=== PATIENT | female | born 1935 | race Caucasian/White ===

== ENCOUNTER 2018-11-12 19:23 | Inpatient (IN) | payer MEDICARE, OTHER ==
--- NOTE | 2018-11-12 21:46 | EDM.PDOC ---
ED HPI GENERAL MEDICAL PROBLEM - General Chief Complaint: General Stated Complaint: ILLNESS Time Seen by Provider: 11/12/18 21:25 Source of Information: Reports: Patient History Limitations: Reports: Altered Mental Status, Physical Impairment - History of Present Illness INITIAL COMMENTS - FREE TEXT/NARRATIVE: 83-year-old female with severe weakness, somnolence, lack of oral intake and has become too disinterested in eating for the family to take care of her. She' s been losing weight for a year, has dementia but has had a marked decrease in mental awareness and activity over the past 24 hours. The family brought her in today because they think she needs nourishment and is concerned there may be some other reason for the weakness. She did walk-in with assistance, she was brought in by private car. She really has no specific complaints. Onset: Gradual, Unknown/Unsure Associated Symptoms: Reports: Confusion, Loss of Appetite, Malaise, Weakness. Denies: Chest Pain, Cough, Fever/Chills, Headaches, Shortness of Breath - Related Data Allergies Allergy/AdvReac Type Severity Reaction Status Date / Time Penicillins Allergy Rash Verified 11/12/18 21:20 Home Meds: Home Meds Donepezil HCl 10 mg PO BEDTIME 11/12/18 [History] Memantine HCl 5 mg PO BID 11/12/18 [History] Past Medical History HEENT History: Reports: Cataract, Impaired Vision [employer] History: Reports: Musculoskeletal History: Reports: Arthritis Neurological History: Reports: Alzheimers Disease Psychiatric History: Reports: Dementia Social & Family History - Tobacco Use Smoking Status *Q: Never Smoker - Caffeine Use Caffeine Use: Reports: None - Recreational Drug Use Recreational Drug Use: No ED ROS GENERAL - Review of Systems Review Of Systems: See Below (Chronic and stable) Constitutional: Reports: Malaise, Weakness, Decreased Appetite, Weight Loss. Denies: Fever, Chills HEENT: Denies: Sinus Problem, Vertigo Respiratory: Denies: Shortness of Breath, Cough Cardiovascular: Denies: Chest Pain Endocrine: Reports: Fatigue (Has been sleeping a lot over the past 24 hours) GI/Abdominal: Reports: Abdominal Pain (Intermittent vague abdominal pain complaints). Denies: Diarrhea, Nausea, Vomiting : Reports: No Symptoms Neurological: Reports: Confusion (Has dementia). Denies: Headache Psychiatric: Denies: Anxiety, Depression ED EXAM, GENERAL - Physical Exam Exam: See Below Exam Limited By: No Limitations General Appearance: Lethargic, Other (Patient is arousable and will answer questions when spoken to but is acting very tired) Eye Exam: Bilateral Eye: EOMI Head: Atraumatic Respiratory/Chest: No Respiratory Distress, Lungs Clear Cardiovascular: Regular Rate, Rhythm GI/Abdominal: Soft, Tender (Does react with some vague tenderness to palpation but no focal tenderness or guarding) Extremities: Other (Cachectic extremities, trace of ankle edema) Neurological: Inattentive, Slow to Respond Psychiatric: Flat Affect Skin Exam: Warm, Dry Course - Vital Signs Last Recorded V/S: Last Vital Signs Temp 97.3 F 11/14/18 13:14 Pulse 65 11/14/18 13:14 Resp 16 11/14/18 13:14 BP 117/53 L 11/14/18 13:14 Pulse Ox 98 11/14/18 13:14 - Orders/Labs/Meds Orders: Active Orders 24 hr Category Date Time Status Convert IV to Saline Lock [OM.PC] Routine Oth 11/13/18 16:57 Ordered Labs: Laboratory Tests 11/12/18 11/12/18 11/12/18 Range/Units 21:41 21:52 21:52 WBC 3.7 L (4.5-11.0) K/uL RBC 3.68 (3.30-5.50) M/uL Hgb 11.6 L (12.0-15.0) g/dL Hct 35.4 L (36.0-48.0) % MCV 96 (80-98) fL MCH 32 H (27-31) pg MCHC 33 (32-36) % Plt Count 148 L (150-400) K/uL Neut % (Auto) 54 (36-66) % Lymph % (Auto) 31 (24-44) % [place] % (Auto) 12 H (2-6) % Eos % (Auto) 2 (2-4) % Baso % (Auto) 1 (0-1) % Sodium 145 (140-148) mmol/L Potassium 3.7 (3.6-5.2) mmol/L Chloride 106 (100-108) mmol/L Carbon Dioxide 34 H (21-32) mmol/L Anion Gap 8.7 (5.0-14.0) mmol/L BUN 29 H D (7-18) mg/dL Creatinine 0.9 (0.6-1.0) mg/dL Est Cr Clr Drug Dosing 33.91 mL/min Estimated GFR (MDRD) 60 (>60) Glucose 79 (74-106) mg/dL Calcium 8.9 (8.5-10.1) mg/dL Total Bilirubin 0.6 (0.2-1.0) mg/dL AST 27 (15-37) U/L ALT 39 (12-78) U/L Alkaline Phosphatase 47 (46-116) U/L Total Protein 6.7 (6.4-8.2) g/dL Albumin 3.3 L (3.4-5.0) g/dL Globulin 3.4 (2.3-3.5) g/dL Albumin/Globulin Ratio 1.0 L (1.2-2.2) Urine Color Yellow Urine Appearance Turbid Urine pH 5.0 (4.5-8.0) Ur Specific [place] 1.020 (1.008-1.030) Urine Protein 30 H (NEGATIVE) mg/dL Urine Glucose (UA) Normal (NEGATIVE) mg/dL Urine Ketones Negative (NEGATIVE) mg/dL Urine Occult Blood Large (NEGATIVE) Urine Nitrite Positive H (NEGATIVE) Urine Bilirubin Negative (NEGATIVE) Urine Urobilinogen Normal (NORMAL) mg/dL Ur Leukocyte Esterase Small (NEGATIVE) Urine RBC 10-20 H (0-5) Urine WBC 10-20 H (0-5) Ur Epithelial Cells Rare Amorphous Sediment Not seen Urine Bacteria Many Urine Mucus Not seen 11/13/18 11/13/18 Range/Units 04:45 04:45 WBC 3.6 L (4.5-11.0) K/uL RBC 3.47 (3.30-5.50) M/uL Hgb 11.0 L (12.0-15.0) g/dL Hct 33.5 L (36.0-48.0) % MCV 97 (80-98) fL MCH 32 H (27-31) pg MCHC 33 (32-36) % Plt Count 137 L (150-400) K/uL Neut % (Auto) 53 (36-66) % Lymph % (Auto) 32 (24-44) % [place] % (Auto) 11 H (2-6) % Eos % (Auto) 3 (2-4) % Baso % (Auto) 1 (0-1) % Sodium 144 (140-148) mmol/L Potassium 3.7 (3.6-5.2) mmol/L Chloride 108 (100-108) mmol/L Carbon Dioxide 30 (21-32) mmol/L Anion Gap 5.9 (5.0-14.0) mmol/L BUN 22 H (7-18) mg/dL Creatinine 0.7 (0.6-1.0) mg/dL Est Cr Clr Drug Dosing 42.97 mL/min Estimated GFR (MDRD) > 60 (>60) Glucose 85 (74-106) mg/dL Calcium 8.3 L (8.5-10.1) mg/dL Total Bilirubin 0.5 (0.2-1.0) mg/dL AST 25 (15-37) U/L ALT 35 (12-78) U/L Alkaline Phosphatase 42 L (46-116) U/L Total Protein 6.0 L (6.4-8.2) g/dL Albumin 2.9 L (3.4-5.0) g/dL Globulin 3.1 (2.3-3.5) g/dL Albumin/Globulin Ratio 0.9 L (1.2-2.2) Urine Color Urine Appearance Urine pH (4.5-8.0) Ur Specific [place] (1.008-1.030) Urine Protein (NEGATIVE) mg/dL Urine Glucose (UA) (NEGATIVE) mg/dL Urine Ketones (NEGATIVE) mg/dL Urine Occult Blood (NEGATIVE) Urine Nitrite (NEGATIVE) Urine Bilirubin (NEGATIVE) Urine Urobilinogen (NORMAL) mg/dL Ur Leukocyte Esterase (NEGATIVE) Urine RBC (0-5) Urine WBC (0-5) Ur Epithelial Cells Amorphous Sediment Urine Bacteria Urine Mucus Meds: Medications Discontinued Medications Generic Name Dose Route Start Last Admin Trade Name Freq PRN Reason Stop Dose Admin Acetaminophen 650 mg 11/12/18 23:17 Tylenol PO Q4H PRN Pain (Mild 1-3)/fever Donepezil HCl 10 mg 11/13/18 21:00 11/13/18 21:58 Aricept PO 10 mg BEDTIME JULISSA Administration Donepezil HCl 10 mg 11/13/18 01:00 11/13/18 02:08 Aricept PO 11/13/18 01:01 Not Given ONETIME ONE Haloperidol Lactate 1 mg 11/13/18 19:59 Haldol IVPUSH Q2H PRN Agitation Heparin Sodium (Porcine) 5,000 units 11/13/18 00:00 11/14/18 08:53 Heparin Sodium SUBCUT 5,000 units Q8H JULISSA Administration Sodium Chloride 500 mls @ 1,000 mls/hr 11/12/18 22:15 11/12/18 22:14 Normal Saline IV 1,000 mls/hr ASDIRECTED JULISSA Administration Sodium Chloride 500 mls @ 500 mls/hr 11/12/18 23:30 11/12/18 23:54 Normal Saline IV 11/13/18 00:29 500 mls/hr ASDIRECTED JULISSA Administration Sodium Chloride 1,000 mls @ 100 mls/hr 11/12/18 23:45 11/13/18 11:25 Normal Saline IV 100 mls/hr ASDIRECTED JULISSA Administration Ceftriaxone Sodium 1 gm/ 50 mls @ 100 mls/hr 11/12/18 23:45 11/13/18 00:41 Sodium Chloride IV 11/13/18 00:14 100 mls/hr ONETIME ONE Administration Ceftriaxone Sodium 1 gm/ 50 mls @ 100 mls/hr 11/12/18 23:45 Sodium Chloride IV 11/13/18 00:14 ONETIME ONE Ceftriaxone Sodium 1 gm/ 50 mls @ 100 mls/hr 11/13/18 21:00 11/13/18 21:58 Sodium Chloride IV 100 mls/hr Q24H JULISSA Administration Influenza Virus Vaccine 1 each 11/13/18 12:00 Pharmacy To Dose - Influenza Vaccine IM 11/13/18 12:01 ONETIME ONE Influenza Virus Vaccine 180 mcg 11/13/18 10:00 11/13/18 14:54 Fluzone High-Dose Syringe IM 11/13/18 10:01 180 mcg .ONCE ONE Administration Melatonin 6 mg 11/13/18 21:00 11/13/18 22:07 Melatonin PO 6 mg BEDTIME JULISSA Administration Memantine 10 mg 11/13/18 01:00 11/13/18 03:12 Namenda PO Not Given BID JULISSA Memantine 5 Mg Tab 2 each 11/13/18 09:00 Own Med PO BID JULISSA Memantine 5mg (Ptom) 0 each 11/13/18 09:00 11/14/18 08:53 PO 1 each BID JULISSA Administration Senna/Docusate Sodium 1 tab 11/12/18 23:17 Senna Plus PO BID PRN Constipation - Re-Assessments/Exams Free Text/Narrative Re-Assessment/Exam: 11/12/18 21:45 A quick catheter UA was obtained, along with a CBC and CMP. 11/12/18 22:25 Quick catheter UA obtained only 5-10 mL of urine, patient is likely volume contracted. Urine was nitrite positive with many bacteria and WBCs. Normal saline was started with a 500 mL bolus. 11/12/18 22:27 CBC and CMP were actually relatively reassuring, BUN was mildly elevated, white count 3700. I talked to Dr. Saenz for admission for UTI, mental status change, and dehydration. Departure - Departure Time of Disposition: 23:53 Disposition: Refer to Observation Condition: Poor Clinical Impression: Dehydration Altered mental state Qualifiers: Altered mental status type: somnolence Qualified Code(s): R40.0 - Somnolence Dementia Qualifiers: Dementia type: Alzheimer's disease Alzheimer's disease onset: unspecified onset Dementia behavioral disturbance: without behavioral disturbance Qualified Code(s): G30.9 - Alzheimer's disease, unspecified; F02.80 - Dementia in other diseases classified elsewhere without behavioral disturbance UTI (urinary tract infection) Qualifiers: Urinary tract infection type: acute cystitis Hematuria presence: without hematuria Qualified Code(s): N30.00 - Acute cystitis without hematuria - Discharge Information
[2018-11-12] MEDS ORDERED: Sodium Chloride 0.9% 500 ML IV SCH ×2 (22:15→23:30)
[2018-11-12] MEDS ORDERED: Acetaminophen 325 MG Tab PO PRN (23:17)
--- NOTE | 2018-11-12 23:17 | PCM.HP ---
H&P History of Present Illness - General Date of Service: 11/12/18 Admit Problem/Dx: 83-year-old female with past medical history of dementia on Namenda medication came to the ED with a complaining of altered mental status, associated with a loss of appetite since last 2 days. Patient accompanied with and son. In the ED patient lab results showed urinary tract infection with nitrites positive. Patient is arousable and responding to the questions. Patient received 500 mL of bolus in the ED patient denies any chest pain, exertional chest pain, breathing difficulty, headaches, dizziness, lightheadedness, disturbance in bowel habits. Patient complaining of suprapubic abdominal pain 2 -3/10 intensity, dull type pain since last 1 day. Patient denies any vomitings. Patient creatinine is at baseline. Patient is a full code. Patient admitted into the observation status. Other review of systems are not significant. Source of Information: Patient, Family History Limitations: Reports: Altered Mental Status - Related Data Allergies/Adverse Reactions: Allergies Allergy/AdvReac Type Severity Reaction Status Date / Time Penicillins Allergy Rash Verified 11/12/18 21:20 Home Medications: Home Meds Donepezil HCl 10 mg PO BEDTIME 11/12/18 [History] Memantine HCl 5 mg PO BID 11/12/18 [History] Past Medical History HEENT History: Reports: Cataract, Impaired Vision [employer] History: Reports: Musculoskeletal History: Reports: Arthritis Neurological History: Reports: Alzheimers Disease Psychiatric History: Reports: Dementia Social & Family History - Family History Family Medical History: Noncontributory - Tobacco Use Smoking Status *Q: Never Smoker - Caffeine Use Caffeine Use: Reports: None - Recreational Drug Use Recreational Drug Use: No H&P Review of Systems - Review of Systems: Review Of Systems: See Below General: Reports: Malaise, Weakness, Fatigue. Denies: Fever, Chills, Night Sweats, Diaphoresis Pulmonary: Denies: Shortness of Breath, Wheezing, Pleuritic Chest Pain, Cough, Sputum Cardiovascular: Denies: Chest Pain, Palpitations, Dyspnea on Exertion, Orthopnea Gastrointestinal: Reports: Abdominal Pain, Anorexia, Decreased Appetite. Denies : Black Stool, Bloody Stool, Constipation, Diarrhea, Difficulty Swallowing, Distension, Flatus Genitourinary: Reports: Dysuria, Frequency. Denies: Burning, Pain, Urgency, Incontinence Musculoskeletal: Denies: Neck Pain, Shoulder Pain Skin: Denies: Cyanosis, Jaundice Psychiatric: Reports: Confusion. Denies: Depression, Mood Lability, Anxiety, Agitation Neurological: Reports: Confusion. Denies: Dizziness, Headache, Numbness, Paresthesia Hematologic/Lymphatic: Denies: Anemia, Easy Bleeding Exam - Exam Exam: See Below - Vital Signs Vital Signs: Last Vital Signs Temp 35.5 C 11/12/18 21:24 Pulse 53 L 11/12/18 23:02 Resp 17 11/12/18 23:02 BP 126/64 11/12/18 23:02 Pulse Ox 100 11/12/18 23:02 Weight: 45.359 kg - Exam Quality Assessment: No: Supplemental Oxygen General: Mild Distress HEENT: PERRLA Neck: Supple, Trachea Midline Lungs: Clear to Auscultation, Normal Respiratory Effort Cardiovascular: Regular Rate, Regular Rhythm GI/Abdominal Exam: Normal Bowel Sounds, Soft, Tender. No: Distended, Guarding, Rigid, Rebound, Hepatomegaly, Splenomegaly Extremities: Normal Inspection, Normal Range of Motion Skin: Warm, Dry, Intact Neurological: Cranial Nerves Intact Neuro Extensive - Mental Status: Disorientation to Person, Disorientation to Place, Disorientation to Time Neuro Extensive - Motor, Sensory, Reflexes: CN II-XII Intact - Patient Data Lab Results Last 24 hrs: Laboratory Results - last 24 hr 11/12/18 11/12/18 11/12/18 Range/Units 21:41 21:52 21:52 WBC 3.7 L (4.5-11.0) K/uL RBC 3.68 (3.30-5.50) M/uL Hgb 11.6 L (12.0-15.0) g/dL Hct 35.4 L (36.0-48.0) % MCV 96 (80-98) fL MCH 32 H (27-31) pg MCHC 33 (32-36) % Plt Count 148 L (150-400) K/uL Neut % (Auto) 54 (36-66) % Lymph % (Auto) 31 (24-44) % [place] % (Auto) 12 H (2-6) % Eos % (Auto) 2 (2-4) % Baso % (Auto) 1 (0-1) % Sodium 145 (140-148) mmol/L Potassium 3.7 (3.6-5.2) mmol/L Chloride 106 (100-108) mmol/L Carbon Dioxide 34 H (21-32) mmol/L Anion Gap 8.7 (5.0-14.0) mmol/L BUN 29 H D (7-18) mg/dL Creatinine 0.9 (0.6-1.0) mg/dL Est Cr Clr Drug Dosing 33.91 mL/min Estimated GFR (MDRD) 60 (>60) Glucose 79 (74-106) mg/dL Calcium 8.9 (8.5-10.1) mg/dL Total Bilirubin 0.6 (0.2-1.0) mg/dL AST 27 (15-37) U/L ALT 39 (12-78) U/L Alkaline Phosphatase 47 (46-116) U/L Total Protein 6.7 (6.4-8.2) g/dL Albumin 3.3 L (3.4-5.0) g/dL Globulin 3.4 (2.3-3.5) g/dL Albumin/Globulin Ratio 1.0 L (1.2-2.2) Urine Color Yellow Urine Appearance Turbid Urine pH 5.0 (4.5-8.0) Ur Specific [place] 1.020 (1.008-1.030) Urine Protein 30 H (NEGATIVE) mg/dL Urine Glucose (UA) Normal (NEGATIVE) mg/dL Urine Ketones Negative (NEGATIVE) mg/dL Urine Occult Blood Large (NEGATIVE) Urine Nitrite Positive H (NEGATIVE) Urine Bilirubin Negative (NEGATIVE) Urine Urobilinogen Normal (NORMAL) mg/dL Ur Leukocyte Esterase Small (NEGATIVE) Urine RBC 10-20 H (0-5) Urine WBC 10-20 H (0-5) Ur Epithelial Cells Rare Amorphous Sediment Not seen Urine Bacteria Many Urine Mucus Not seen Result Diagrams: 11/13/18 04:45 11/13/18 04:45 - Problem List (1) Dementia SNOMED Code(s): 63186375 ICD Code: F03.90 - UNSPECIFIED DEMENTIA WITHOUT BEHAVIORAL DISTURBANCE Status: Acute Current Visit: Yes (2) UTI (urinary tract infection) SNOMED Code(s): 38659876 ICD Code: N39.0 - URINARY TRACT INFECTION, SITE NOT SPECIFIED Status: Acute Current Visit: Yes (3) Altered mental state SNOMED Code(s): 726922638 ICD Code: R41.82 - ALTERED MENTAL STATUS, UNSPECIFIED Status: Acute Current Visit: Yes (4) Loss of appetite SNOMED Code(s): 62742445 ICD Code: R63.0 - ANOREXIA Status: Acute Current Visit: Yes (5) Weight loss SNOMED Code(s): 00301752, 006985170 ICD Code: R63.4 - ABNORMAL WEIGHT LOSS Status: Acute Current Visit: Yes (6) Backache SNOMED Code(s): 962917787 ICD Code: M54.9 - DORSALGIA, UNSPECIFIED Status: Acute Priority: Medium Current Visit: No (7) Compression fracture SNOMED Code(s): 832612291 ICD Code: T14.8 - OTHER INJURY OF UNSPECIFIED BODY REGION * DO NOT USE * Status: Acute Current Visit: No (8) DJD (degenerative joint disease) SNOMED Code(s): 547139205 ICD Code: M19.90 - UNSPECIFIED OSTEOARTHRITIS, UNSPECIFIED SITE Status: Chronic Current Visit: No Problem List Initiated/Reviewed/Updated: Yes Orders Last 24hrs: Active Orders 24 hr Category Date Time Status CULTURE URINE [RM] Stat Lab 11/12/18 22:25 Received Sodium Chloride 0.9% [Normal Saline] 500 ml Med 11/12/18 22:15 Active IV ASDIRECTED Medication Orders Sodium Chloride (Normal Saline) 500 mls @ 1,000 mls/hr IV ASDIRECTED JULISSA Last Admin: 11/12/18 22:14 Dose: 1,000 mls/hr Assessment/Plan Comment:: 83-year-old female with past medical history of dementia and came to the clinic came to the ED with a complaining of altered mental status and diagnosed with a urinary tract infection. Patient the urine showed nitrates are positive We will treat with Rocephin 1 g once daily We will follow urinary culture results and change antibiotics accordingly Patient received 500 mL of bolus in the ED Will place 500 mL of second bolus and after maintenance IV fluids 100 mL/h Patient is a full code We will repeat CBC, CMP tomorrow Consulted PT and OT DVT prophylaxis heparin 5000 q. 8 hourly Diet regular diet CODE STATUS full code Esquivel catheter not indicated Status observation status
[2018-11-12] MEDS ORDERED: cefTRIAXone 1 GM in Sodium Chloride 0.9% 50 ML IV SCH (23:30)
[2018-11-12] MEDS ORDERED: cefTRIAXone 1 GM in Sodium Chloride 0.9% 50 ML IV ONE ×4 (23:45)
[2018-11-13] MEDS: Heparin Sodium 5,000 Units/ML Vial SUBCUT SCH ×3 (00:49→18:20)
[2018-11-13] MEDS: Sodium Chloride 0.9% 1,000 ML IV SCH ×2 (01:00→11:25)
[2018-11-13] MEDS ORDERED: MEMANTINE 5 MG PO SCH ×3 (01:00→09:00)
[2018-11-13] MEDS: MEMANTINE 5 MG PO SCH ×2 (08:52→21:57)
--- NOTE | 2018-11-13 17:04 | PCM.PN ---
- General Info Date of Service: 11/13/18 Subjective Update: Ms. Palma is an 83-year-old woman who was admitted last night through the emergency department with increased weakness and lethargy secondary to urinary tract infection. Urinalysis obtained in the emergency department was felt to be consistent with urinary tract infection and the urine culture has been obtained , results of which are pending at this time. She is been given IV fluids for hydration and IV antibiotic therapy with ceftriaxone. Because of her significant dementia she is unable to provide a meaningful history concerning recent symptoms or review of systems. - Patient Data Vitals - Most Recent: Last Vital Signs Temp 96.5 F 11/13/18 14:35 Pulse 62 11/13/18 14:35 Resp 16 11/13/18 14:35 BP 122/59 L 11/13/18 14:35 Pulse Ox 98 11/13/18 14:35 Weight - Most Recent: 100 lb I&O - Last 24 Hours: Intake & Output 11/13/18 11/13/18 11/13/18 06:59 14:59 22:59 Intake Total 850 580 Output Total 100 Balance 750 580 Lab Results Last 24 Hours: Laboratory Results - last 24 hr 11/12/18 11/12/18 11/12/18 Range/Units 21:41 21:52 21:52 WBC 3.7 L (4.5-11.0) K/uL RBC 3.68 (3.30-5.50) M/uL Hgb 11.6 L (12.0-15.0) g/dL Hct 35.4 L (36.0-48.0) % MCV 96 (80-98) fL MCH 32 H (27-31) pg MCHC 33 (32-36) % Plt Count 148 L (150-400) K/uL Neut % (Auto) 54 (36-66) % Lymph % (Auto) 31 (24-44) % [place] % (Auto) 12 H (2-6) % Eos % (Auto) 2 (2-4) % Baso % (Auto) 1 (0-1) % Sodium 145 (140-148) mmol/L Potassium 3.7 (3.6-5.2) mmol/L Chloride 106 (100-108) mmol/L Carbon Dioxide 34 H (21-32) mmol/L Anion Gap 8.7 (5.0-14.0) mmol/L BUN 29 H D (7-18) mg/dL Creatinine 0.9 (0.6-1.0) mg/dL Est Cr Clr Drug Dosing 33.91 mL/min Estimated GFR (MDRD) 60 (>60) Glucose 79 (74-106) mg/dL Calcium 8.9 (8.5-10.1) mg/dL Total Bilirubin 0.6 (0.2-1.0) mg/dL AST 27 (15-37) U/L ALT 39 (12-78) U/L Alkaline Phosphatase 47 (46-116) U/L Total Protein 6.7 (6.4-8.2) g/dL Albumin 3.3 L (3.4-5.0) g/dL Globulin 3.4 (2.3-3.5) g/dL Albumin/Globulin Ratio 1.0 L (1.2-2.2) Urine Color Yellow Urine Appearance Turbid Urine pH 5.0 (4.5-8.0) Ur Specific [place] 1.020 (1.008-1.030) Urine Protein 30 H (NEGATIVE) mg/dL Urine Glucose (UA) Normal (NEGATIVE) mg/dL Urine Ketones Negative (NEGATIVE) mg/dL Urine Occult Blood Large (NEGATIVE) Urine Nitrite Positive H (NEGATIVE) Urine Bilirubin Negative (NEGATIVE) Urine Urobilinogen Normal (NORMAL) mg/dL Ur Leukocyte Esterase Small (NEGATIVE) Urine RBC 10-20 H (0-5) Urine WBC 10-20 H (0-5) Ur Epithelial Cells Rare Amorphous Sediment Not seen Urine Bacteria Many Urine Mucus Not seen 11/13/18 11/13/18 Range/Units 04:45 04:45 WBC 3.6 L (4.5-11.0) K/uL RBC 3.47 (3.30-5.50) M/uL Hgb 11.0 L (12.0-15.0) g/dL Hct 33.5 L (36.0-48.0) % MCV 97 (80-98) fL MCH 32 H (27-31) pg MCHC 33 (32-36) % Plt Count 137 L (150-400) K/uL Neut % (Auto) 53 (36-66) % Lymph % (Auto) 32 (24-44) % [place] % (Auto) 11 H (2-6) % Eos % (Auto) 3 (2-4) % Baso % (Auto) 1 (0-1) % Sodium 144 (140-148) mmol/L Potassium 3.7 (3.6-5.2) mmol/L Chloride 108 (100-108) mmol/L Carbon Dioxide 30 (21-32) mmol/L Anion Gap 5.9 (5.0-14.0) mmol/L BUN 22 H (7-18) mg/dL Creatinine 0.7 (0.6-1.0) mg/dL Est Cr Clr Drug Dosing 42.97 mL/min Estimated GFR (MDRD) > 60 (>60) Glucose 85 (74-106) mg/dL Calcium 8.3 L (8.5-10.1) mg/dL Total Bilirubin 0.5 (0.2-1.0) mg/dL AST 25 (15-37) U/L ALT 35 (12-78) U/L Alkaline Phosphatase 42 L (46-116) U/L Total Protein 6.0 L (6.4-8.2) g/dL Albumin 2.9 L (3.4-5.0) g/dL Globulin 3.1 (2.3-3.5) g/dL Albumin/Globulin Ratio 0.9 L (1.2-2.2) Urine Color Urine Appearance Urine pH (4.5-8.0) Ur Specific [place] (1.008-1.030) Urine Protein (NEGATIVE) mg/dL Urine Glucose (UA) (NEGATIVE) mg/dL Urine Ketones (NEGATIVE) mg/dL Urine Occult Blood (NEGATIVE) Urine Nitrite (NEGATIVE) Urine Bilirubin (NEGATIVE) Urine Urobilinogen (NORMAL) mg/dL Ur Leukocyte Esterase (NEGATIVE) Urine RBC (0-5) Urine WBC (0-5) Ur Epithelial Cells Amorphous Sediment Urine Bacteria Urine Mucus Med Orders - Current: Current Medications Acetaminophen (Tylenol) 650 mg PO Q4H PRN PRN Reason: Pain (Mild 1-3)/fever Donepezil HCl (Aricept) 10 mg PO BEDTIME [facility] Heparin Sodium (Porcine) (Heparin Sodium) 5,000 units SUBCUT Q8H [facility] Last Admin: 11/13/18 08:50 Dose: 5,000 units Ceftriaxone Sodium 1 gm/ (Sodium Chloride) 50 mls @ 100 mls/hr IV Q24H [facility] Memantine 5mg (Ptom) 0 each PO BID [facility] Last Admin: 11/13/18 08:52 Dose: 1 each Senna/Docusate Sodium (Senna Plus) 1 tab PO BID PRN PRN Reason: Constipation Discontinued Medications Donepezil HCl (Aricept) 10 mg PO ONETIME ONE Stop: 11/13/18 01:01 Last Admin: 11/13/18 02:08 Dose: Not Given Sodium Chloride (Normal Saline) 500 mls @ 1,000 mls/hr IV ASDIRECTED [facility] Last Admin: 11/12/18 22:14 Dose: 1,000 mls/hr Sodium Chloride (Normal Saline) 500 mls @ 500 mls/hr IV ASDIRECTED [facility] Stop: 11/13/18 00:29 Last Admin: 11/12/18 23:54 Dose: 500 mls/hr Sodium Chloride (Normal Saline) 1,000 mls @ 100 mls/hr IV ASDIRECTED [facility] Last Admin: 11/13/18 11:25 Dose: 100 mls/hr Ceftriaxone Sodium 1 gm/ (Sodium Chloride) 50 mls @ 100 mls/hr IV ONETIME ONE Stop: 11/13/18 00:14 Last Admin: 11/13/18 00:41 Dose: 100 mls/hr Ceftriaxone Sodium 1 gm/ (Sodium Chloride) 50 mls @ 100 mls/hr IV ONETIME ONE Stop: 11/13/18 00:14 Influenza Virus Vaccine (Pharmacy To Dose - Influenza Vaccine) 1 each IM ONETIME ONE Stop: 11/13/18 12:01 Influenza Virus Vaccine (Fluzone High-Dose Syringe) 180 mcg IM .ONCE ONE Stop: 11/13/18 10:01 Last Admin: 11/13/18 14:54 Dose: 180 mcg Memantine (Namenda) 10 mg PO BID [facility] Last Admin: 11/13/18 03:12 Dose: Not Given Memantine 5 Mg Tab (Own Med) 2 each PO BID [facility] - Exam Quality Assessment: DVT Prophylaxis General: Alert, Cooperative, No Acute Distress Lungs: Clear to Auscultation, Normal Respiratory Effort Cardiovascular: Regular Rate, Regular Rhythm, No Murmurs GI/Abdominal Exam: Soft, Non-Tender, No Organomegaly, No Distention Extremities: Non-Tender, No Pedal Edema - Problem List Review Problem List Initiated/Reviewed/Updated: Yes - My Orders Last 24 Hours: My Active Orders 11/13/18 16:57 Convert IV to Saline Lock [OM.PC] Routine 11/13/18 16:58 Patient Status [ADT] Routine 11/13/18 16:59 Discontinue Telemetry Monitoring [Cardiac Monitoring Discontinue] [RC] Click to Edit - Plan Plan:: ASSESSMENT AND PLAN URINARY TRACT INFECTION -Urine culture pending -Continue IV ceftriaxone WEAKNESS AND LETHARGY-secondary to UTI and dehydration. Significantly improved since admission. More alert and interactive, still confused which is her baseline. -Saline lock IV DEMENTIA -Continue outpatient medications MAINTENANCE ISSUES -DVT prophylaxis; subcutaneous heparin -GI prophylaxis; not indicated -Esquivel catheter; not indicated -Nutrition; regular diet -Nicotine dependence; not required CODE STATUS-FULL CODE ADMISSION STATUS-patient will be admitted to inpatient status, expect at least a 2 night hospital stay for evaluation and management of problems as outlined above. At the time of this admission I do not reasonably expected evaluation and management of this problem will require more than a 96 hour hospital stay. DISPOSITION-anticipate discharge to home after the hospital stay. PRIMARY CARE PROVIDER-Dr. Schmitz
[2018-11-13] MEDS ORDERED: Haloperidol Lactate 5 MG/ML SDV IVPUSH PRN (19:59)
--- NOTE | 2018-11-13 20:05 | PCM.SN ---
- Free Text/Narrative Note: 2 [facility], concerns of agitation and restlessness A: agitation/restless P: order Melatonin 6mg po at hs Haldol 1 mg IV every 2 hours as needed for agitation/restlessness continue close monitoring.
[2018-11-13] MEDS ORDERED: DONEPEZIL 10 MG PO SCH (21:00)
[2018-11-13] MEDS ORDERED: cefTRIAXone 1 GM in Sodium Chloride 0.9% 50 ML IV SCH (21:00)
[2018-11-13] MEDS ORDERED: Melatonin 3 MG Tab PO SCH (21:00)
[2018-11-14] MEDS: Heparin Sodium 5,000 Units/ML Vial SUBCUT SCH ×2 (00:40→08:53)
[2018-11-14] MEDS: MEMANTINE 5 MG PO SCH (08:53)
--- NOTE | 2018-11-14 12:16 | PCM.DCSUM1 ---
Discharge Summary - Hospital Course Brief History: His Palma is an 83-year-old woman who was admitted through the emergency department with weakness and lethargy secondary to dehydration. - Discharge Data Discharge Date: 11/14/18 Discharge Disposition: Home, W Home Health Agency 06 Condition: Fair - Discharge Diagnosis/Problem(s) (1) Dehydration SNOMED Code(s): 41552317 ICD Code: E86.0 - DEHYDRATION Status: Acute Current Visit: Yes (2) Weakness SNOMED Code(s): 79924921 ICD Code: R53.1 - WEAKNESS Status: Acute Current Visit: Yes (3) Dementia SNOMED Code(s): 94345722 ICD Code: F03.90 - UNSPECIFIED DEMENTIA WITHOUT BEHAVIORAL DISTURBANCE Status: Acute Current Visit: Yes - Patient Summary/Data Consults: Consultations 11/12/18 23:17 OT Evaluation and Treatment [CONS] Routine Please Evaluate and Treat. OT Reason for Consult: Strengthening This query below is only for informational purposes and is not editable. PT Evaluation and Treatment [CONS] Routine Please Evaluate and Treat. PT Reason for Consult: Strengthening This query below is only for informational purposes and is not editable. Hospital Course: Ms. Palma is an 83-year-old woman with a history of progressive moderate to severe dementia. She developed decreased level of consciousness and weakness in home and was brought into the emergency department for further evaluation. There was no history of recent medication changes and no obvious metabolic abnormalities identified on laboratory studies in the emergency department. She was felt to be somewhat dehydrated and was started on IV fluids in the emergency department which were continued after admission. Urinalysis showed evidence of possible infection and she was started on IV antibiotic therapy with Rocephin after urine culture had been obtained. By the following morning after hydration she her to be back to baseline and was more alert and interactive although still very confused. She was kept in the hospital additional day to wait for urine culture results, to determine antibiotic therapy at the time of discharge. Urine culture returned growing only mixed ghazala so she will not be continued on antibiotic therapy as a urinary tract infection was not found to be present. I discussed the issue dehydration with her and encouraged increased intake of fluids on a daily basis. Activity will be as tolerated and she will resume her usual diet. Follow-up appointment will be scheduled with primary care within 1 week. - Patient Instructions Diet: Usual Diet as Tolerated Activity: As Tolerated Other/Special Instructions: Please schedule follow-up appointment with primary care within 1 week. - Discharge Plan *PRESCRIPTION DRUG MONITORING PROGRAM REVIEWED*: Not Applicable *COPY OF PRESCRIPTION DRUG MONITORING REPORT IN PATIENT SMITA: Not Applicable Home Medications: Home Meds Donepezil HCl 10 mg PO BEDTIME 11/12/18 [History] Memantine HCl 5 mg PO BID 11/12/18 [History] Referrals: Sharif Schmitz MD [Primary Care Provider] - - Discharge Summary/Plan Comment DC Time >30 min.: No - Patient Data Vitals - Most Recent: Last Vital Signs Temp 96.8 F 11/14/18 06:54 Pulse 67 11/14/18 06:54 Resp 16 11/14/18 06:54 BP 126/77 11/14/18 06:54 Pulse Ox 97 11/14/18 06:54 Weight - Most Recent: 101 lb 12.8 oz I&O - Last 24 hours: Intake & Output 11/13/18 11/14/18 11/14/18 22:59 06:59 14:59 Intake Total 1533 1152 600 Output Total 300 Balance 1233 1152 600 KYLE Results - Last 24 hrs: Microbiology 11/12/18 22:25 Urine Culture - Preliminary Urine, Quick Cath (In-Out) MIXED GHAZALA DAY 1 Med Orders - Current: Current Medications Acetaminophen (Tylenol) 650 mg PO Q4H PRN PRN Reason: Pain (Mild 1-3)/fever Donepezil HCl (Aricept) 10 mg PO BEDTIME [facility] Last Admin: 11/13/18 21:58 Dose: 10 mg Haloperidol Lactate (Haldol) 1 mg IVPUSH Q2H PRN PRN Reason: Agitation Heparin Sodium (Porcine) (Heparin Sodium) 5,000 units SUBCUT Q8H [facility] Last Admin: 11/14/18 08:53 Dose: 5,000 units Ceftriaxone Sodium 1 gm/ (Sodium Chloride) 50 mls @ 100 mls/hr IV Q24H [facility] Last Admin: 11/13/18 21:58 Dose: 100 mls/hr Melatonin (Melatonin) 6 mg PO BEDTIME [facility] Last Admin: 11/13/18 22:07 Dose: 6 mg Memantine 5mg (Ptom) 0 each PO BID [facility] Last Admin: 11/14/18 08:53 Dose: 1 each Senna/Docusate Sodium (Senna Plus) 1 tab PO BID PRN PRN Reason: Constipation Discontinued Medications Donepezil HCl (Aricept) 10 mg PO ONETIME ONE Stop: 11/13/18 01:01 Last Admin: 11/13/18 02:08 Dose: Not Given Sodium Chloride (Normal Saline) 500 mls @ 1,000 mls/hr IV ASDIRECTED [facility] Last Admin: 11/12/18 22:14 Dose: 1,000 mls/hr Sodium Chloride (Normal Saline) 500 mls @ 500 mls/hr IV ASDIRECTED [facility] Stop: 11/13/18 00:29 Last Admin: 11/12/18 23:54 Dose: 500 mls/hr Sodium Chloride (Normal Saline) 1,000 mls @ 100 mls/hr IV ASDIRECTED [facility] Last Admin: 11/13/18 11:25 Dose: 100 mls/hr Ceftriaxone Sodium 1 gm/ (Sodium Chloride) 50 mls @ 100 mls/hr IV ONETIME ONE Stop: 11/13/18 00:14 Last Admin: 11/13/18 00:41 Dose: 100 mls/hr Ceftriaxone Sodium 1 gm/ (Sodium Chloride) 50 mls @ 100 mls/hr IV ONETIME ONE Stop: 11/13/18 00:14 Influenza Virus Vaccine (Pharmacy To Dose - Influenza Vaccine) 1 each IM ONETIME ONE Stop: 11/13/18 12:01 Influenza Virus Vaccine (Fluzone High-Dose Syringe) 180 mcg IM .ONCE ONE Stop: 11/13/18 10:01 Last Admin: 11/13/18 14:54 Dose: 180 mcg Memantine (Namenda) 10 mg PO BID [facility] Last Admin: 11/13/18 03:12 Dose: Not Given Memantine 5 Mg Tab (Own Med) 2 each PO BID [facility] - Exam General: Reports: Alert, Cooperative, No Acute Distress Lungs: Reports: Clear to Auscultation, Normal Respiratory Effort Cardiovascular: Reports: Regular Rate, Regular Rhythm, No Murmurs GI/Abdominal Exam: Soft, Non-Tender, No Organomegaly, No Distention
== END 2018-11-14 14:00 | disposition home health service (06) | DRG 641 ==
LOC: JP.ED 19:23 → JP.MS 23:17 → OBSVTOIN 11-13 16:58
PROVIDERS: ADMIT Family Medicine; ATTEND Family Medicine
DX: E86.0 Dehydration (principal); R41.82 Altered mental status, unspecified; R63.0 Anorexia; R63.4 Abnormal weight loss; G30.9 Alzheimer's disease, unspecified; F02.80 Dementia in other diseases classified elsewhere, unspecified severity, without behavioral disturbance, psychotic disturbance, mood disturbance, and anxiety; R82.90 Unspecified abnormal findings in urine; R53.1 Weakness; R40.0 Somnolence; R45.1 Restlessness and agitation; Z23 Encounter for immunization; M19.90 Unspecified osteoarthritis, unspecified site; H54.7 Unspecified visual loss; Z88.0 Allergy status to penicillin
CPT/HCPCS: 36415 ×2; 80053 ×2; 81001; 85025 ×2; 87086; 90662; 96361; 96365; 96372; 97161; 97165; 99284; 99285; G0008; G0378 ×2; J0696; J1644 ×2; J7030 ×4; J7050; 97116-GP; A9270-GY

== ENCOUNTER 2019-04-27 22:31 | Emergency (ER) | payer MEDICARE, OTHER ==
--- NOTE | 2019-04-27 23:22 | EDM.PDOC ---
<Yoana Wiley - Last Filed: 04/28/19 06:40> ED HPI GENERAL MEDICAL PROBLEM - General Chief Complaint: Neurological Problem Stated Complaint: LETHARGIC Time Seen by Provider: 04/27/19 23:14 Source of Information: Reports: Patient History Limitations: Reports: No Limitations - History of Present Illness INITIAL COMMENTS - FREE TEXT/NARRATIVE: pt arrived because the stated that he has not been able to get her meds in today. She has not eaten much and her fluid intake is poor. She has slept most of the day and has not been able to take care of herself. Onset: Today, Gradual Duration: Hour(s): Location: Reports: Head, Generalized, Other (pt is very weak and not responding well. ) Associated Symptoms: Reports: Confusion, Weakness, Other (pt has a history of dementia. ) - Related Data Allergies Allergy/AdvReac Type Severity Reaction Status Date / Time Penicillins Allergy Rash Verified 11/12/18 21:20 Home Meds: Home Meds Donepezil HCl 10 mg PO BEDTIME 11/12/18 [History] Memantine HCl 5 mg PO BID 11/12/18 [History] Past Medical History HEENT History: Reports: Cataract, Impaired Vision [employer] History: Reports: Musculoskeletal History: Reports: Arthritis Neurological History: Reports: Alzheimers Disease Psychiatric History: Reports: Dementia Social & Family History - Family History Family Medical History: Noncontributory - Caffeine Use Caffeine Use: Reports: None ED ROS GENERAL - Review of Systems Review Of Systems: See Below Constitutional: Reports: Malaise, Weakness, Decreased Appetite, Other (pt has had a very poor intake today. ) HEENT: Reports: No Symptoms Respiratory: Reports: No Symptoms Cardiovascular: Reports: No Symptoms, Other (pulse is in the 50s. ) Endocrine: Reports: No Symptoms GI/Abdominal: Reports: No Symptoms, Other ( eating poorly) : Reports: No Symptoms Musculoskeletal: Reports: No Symptoms Skin: Reports: No Symptoms ED EXAM, NEURO - Physical Exam Exam: See Below Text/Narrative:: pt is very sleepy and quite weak. She does not have a fever. She has had a very poor intake today. Exam Limited By: No Limitations General Appearance: Alert, Anxious, Other (pt is not responding well. ) Ears: Normal TMs Nose: Normal Inspection Throat/Mouth: Normal Inspection Head Exam: Atraumatic Neck: Normal Inspection Respiratory/Chest: No Respiratory Distress Cardiovascular: Regular Rate, Rhythm, Bradycardia, Other (pulse is in the 50s) GI/Abdominal: Soft, Non-Tender (Female) Exam: Deferred Rectal (Female) Exam: Deferred Neurological: Other (pt is very obtunded. ) Back Exam: Normal Inspection Extremities: Normal Inspection Course - Vital Signs Last Recorded V/S: Last Vital Signs Temp 35.3 C 04/27/19 22:51 Pulse 78 04/28/19 04:32 Resp 12 04/27/19 22:51 BP 125/53 L 04/28/19 05:32 Pulse Ox 96 04/27/19 22:51 - Orders/Labs/Meds Orders: Active Orders 24 hr Category Date Time Status Cardiac Monitoring [RC] .As Directed Care 04/27/19 23:02 Active EKG Documentation Completion [RC] ASDIRECTED Care 04/27/19 23:03 Active CULTURE URINE [RM] Stat Lab 04/28/19 00:01 Received Sodium Chloride 0.9% [Normal Saline] 1,000 ml Med 04/28/19 00:30 Active IV ASDIRECTED Sodium Chloride 0.9% [Normal Saline] 1,000 ml Med 04/28/19 02:00 Active IV ASDIRECTED EKG 12 Lead [EK] Routine Ther 04/27/19 23:03 Ordered Medication Orders Sodium Chloride (Normal Saline) 1,000 mls @ 500 mls/hr IV ASDIRECTED [facility] Last Admin: 04/28/19 01:45 Dose: 500 mls/hr Sodium Chloride (Normal Saline) 1,000 mls @ 500 mls/hr IV ASDIRECTED [facility] Last Admin: 04/28/19 04:08 Dose: 500 mls/hr Labs: Laboratory Tests 04/27/19 04/27/19 04/27/19 Range/Units 23:15 23:15 23:55 WBC 4.5 (4.5-11.0) K/uL RBC 3.79 (3.30-5.50) M/uL Hgb 11.9 L (12.0-15.0) g/dL Hct 36.5 (36.0-48.0) % MCV 96 (80-98) fL MCH 31 (27-31) pg MCHC 33 (32-36) % Plt Count 159 (150-400) K/uL Neut % (Auto) 60 (36-66) % Lymph % (Auto) 26 (24-44) % [place] % (Auto) 11 H (2-6) % Eos % (Auto) 2 (2-4) % Baso % (Auto) 1 (0-1) % Sodium 141 (140-148) mmol/L Potassium 4.1 (3.6-5.2) mmol/L Chloride 103 (100-108) mmol/L Carbon Dioxide 32 (21-32) mmol/L Anion Gap 6.2 (5.0-14.0) mmol/L BUN 26 H (7-18) mg/dL Creatinine 1.0 (0.6-1.0) mg/dL Est Cr Clr Drug Dosing 32.35 mL/min Estimated GFR (MDRD) 53 L (>60) Glucose 110 H (74-106) mg/dL Lactic Acid (0.4-2.0) mmol/L Calcium 8.8 (8.5-10.1) mg/dL Total Bilirubin 0.5 (0.2-1.0) mg/dL AST 22 (15-37) U/L ALT 28 (12-78) U/L Alkaline Phosphatase 50 (46-116) U/L Total Protein 6.8 (6.4-8.2) g/dL Albumin 3.4 (3.4-5.0) g/dL Globulin 3.4 (2.3-3.5) g/dL Albumin/Globulin Ratio 1.0 L (1.2-2.2) Urine Color Yellow Urine Appearance Clear Urine pH 6.0 (4.5-8.0) Ur Specific [place] 1.020 (1.008-1.030) Urine Protein Negative (NEGATIVE) mg/dL Urine Glucose (UA) Normal (NEGATIVE) mg/dL Urine Ketones Negative (NEGATIVE) mg/dL Urine Occult Blood Moderate (NEGATIVE) Urine Nitrite Negative (NEGATIVE) Urine Bilirubin Negative (NEGATIVE) Urine Urobilinogen Normal (NORMAL) mg/dL Ur Leukocyte Esterase Negative (NEGATIVE) Urine RBC 5-10 H (0-5) Urine WBC 0-5 (0-5) Ur Epithelial Cells Few Amorphous Sediment Not seen Urine Bacteria Few Urine Mucus Not seen 04/28/19 Range/Units 01:07 WBC (4.5-11.0) K/uL RBC (3.30-5.50) M/uL Hgb (12.0-15.0) g/dL Hct (36.0-48.0) % MCV (80-98) fL MCH (27-31) pg MCHC (32-36) % Plt Count (150-400) K/uL Neut % (Auto) (36-66) % Lymph % (Auto) (24-44) % [place] % (Auto) (2-6) % Eos % (Auto) (2-4) % Baso % (Auto) (0-1) % Sodium (140-148) mmol/L Potassium (3.6-5.2) mmol/L Chloride (100-108) mmol/L Carbon Dioxide (21-32) mmol/L Anion Gap (5.0-14.0) mmol/L BUN (7-18) mg/dL Creatinine (0.6-1.0) mg/dL Est Cr Clr Drug Dosing mL/min Estimated GFR (MDRD) (>60) Glucose (74-106) mg/dL Lactic Acid 1.0 (0.4-2.0) mmol/L Calcium (8.5-10.1) mg/dL Total Bilirubin (0.2-1.0) mg/dL AST (15-37) U/L ALT (12-78) U/L Alkaline Phosphatase (46-116) U/L Total Protein (6.4-8.2) g/dL Albumin (3.4-5.0) g/dL Globulin (2.3-3.5) g/dL Albumin/Globulin Ratio (1.2-2.2) Urine Color Urine Appearance Urine pH (4.5-8.0) Ur Specific [place] (1.008-1.030) Urine Protein (NEGATIVE) mg/dL Urine Glucose (UA) (NEGATIVE) mg/dL Urine Ketones (NEGATIVE) mg/dL Urine Occult Blood (NEGATIVE) Urine Nitrite (NEGATIVE) Urine Bilirubin (NEGATIVE) Urine Urobilinogen (NORMAL) mg/dL Ur Leukocyte Esterase (NEGATIVE) Urine RBC (0-5) Urine WBC (0-5) Ur Epithelial Cells Amorphous Sediment Urine Bacteria Urine Mucus Meds: Medications Generic Name Dose Route Start Last Admin Trade Name Freq PRN Reason Stop Dose Admin Sodium Chloride 1,000 mls @ 500 mls/hr 04/28/19 00:30 04/28/19 01:45 Normal Saline IV 500 mls/hr ASDIRECTED [facility] Administration Sodium Chloride 1,000 mls @ 500 mls/hr 04/28/19 02:00 04/28/19 04:08 Normal Saline IV 500 mls/hr ASDIRECTED [facility] Administration Discontinued Medications Generic Name Dose Route Start Last Admin Trade Name Gretel PRN Reason Stop Dose Admin Memantine 10 mg 04/28/19 06:45 04/28/19 07:14 Namenda PO 04/28/19 06:46 10 mg BID ONE Administration - Re-Assessments/Exams Free Text/Narrative Re-Assessment/Exam: 04/28/19 01:34 pt has a clear looking urine. Her chest xray was neg. Her electrolytes show dehydration. 04/28/19 06:40 pt was hydrated with 2 liters of fluid. will try to feed the pt this am and give her morning medication. Departure - Departure Disposition: Home, Self-Care 01 Clinical Impression: Dehydration - Discharge Information Referrals: Sharif Schmitz MD [Primary Care Provider] - Forms: ED Department Discharge Additional Instructions: Continue usual medications. Be sure to drink plenty of liquids to prevent dehydration. <Jozef George - Last Filed: 04/28/19 08:28> Course - Re-Assessments/Exams Free Text/Narrative Re-Assessment/Exam: 04/28/19 08:27Care assumed from Dr Wiley at 0700. The patient ate breakfast well and now is ready to go home. Departure - Departure Time of Disposition: 08:26 Condition: Fair
[2019-04-28] MEDS ORDERED: Sodium Chloride 0.9% 1,000 ML IV SCH ×2 (00:30→02:00)
--- NOTE | 2019-04-28 01:12 | CRLCR ---
Indication: Obtunded Technique: Chest 1 view Comparison: None Findings/Impression: Cardiovascular and mediastinum: Heart size and vasculature are normal in caliber and appearance. Mediastinum is within normal limits. Lungs and pleural space: Lungs are clear. No sign of infiltrate or mass. No sign of pleural effusion. No pneumothorax. Bones and soft tissues: No significant findings. Dictated by Carol Sanchez MD @ Apr 28 2019 1:09AM Signed by Dr. Carol Sanchez @ Apr 28 2019 1:10AM
[2019-04-28] MEDS ORDERED: Memantine 10 MG Tab PO ONE (06:45)
== END 2019-04-28 09:41 | disposition home or self-care (01) ==
LOC: JP.ED 22:31
DX: E86.0 Dehydration (principal); G30.9 Alzheimer's disease, unspecified; F02.80 Dementia in other diseases classified elsewhere, unspecified severity, without behavioral disturbance, psychotic disturbance, mood disturbance, and anxiety; M19.90 Unspecified osteoarthritis, unspecified site; Z88.0 Allergy status to penicillin
CPT/HCPCS: 36415; 71045; 80053; 81001; 83605; 85025; 87086; 93005; 96360; 96361; 99284; A9270; J7030; 93010

== ENCOUNTER 2019-10-05 13:19 | Inpatient (IN) | payer MEDICARE, OTHER ==
[2019-10-05] MEDS ORDERED: Sodium Chloride 0.9% 10 ML Syringe FLUSH PRN ×2 (13:20→16:44)
[2019-10-05] MEDS ORDERED: cefTRIAXone 2 GM in Sodium Chloride 0.9% 50 ML IV ONE (13:25)
[2019-10-05] MEDS ORDERED: Sodium Chloride 0.9% 10 ML SDV IV STA (13:27)
--- NOTE | 2019-10-05 13:34 | EDM.PDOC ---
ED HPI GENERAL MEDICAL PROBLEM - General Stated Complaint: A-FIB AND UTI Time Seen by Provider: 10/05/19 13:20 Source of Information: Reports: Patient History Limitations: Reports: No Limitations - History of Present Illness INITIAL COMMENTS - FREE TEXT/NARRATIVE: This is an 84-year-old with unknown past medical history who presents with altered mental status. The patient is unable to provide a history due to encephalopathy. History is provided primarily by EMS. EMS was called to the patient's home due to confusion. They found the patient in her room and foul-smelling urine. She is intermittently been able to follow basic commands but generally only responsive to painful stimuli. She was initially noted to be hypotensive with systolics in the 80s. She was also in A. fib with RVR which resolved shortly before arrival to the hospital. Unclear what her baseline is, reportedly her has some confusion as well. The patient is unable to provide any history. No advance directives per EMS. - Related Data Allergies Allergy/AdvReac Type Severity Reaction Status Date / Time Penicillins Allergy Rash Verified 10/05/19 13:40 Home Meds: Home Meds Donepezil HCl 10 mg PO BEDTIME 11/12/18 [History] Memantine HCl 5 mg PO BID 11/12/18 [History] Acetaminophen 650 mg PO ASDIRECTED 10/05/19 [History] Meclizine [Antivert] 25 mg PO DAILY PRN 10/05/19 [History] Past Medical History HEENT History: Reports: Cataract, Impaired Vision [employer] History: Reports: Musculoskeletal History: Reports: Arthritis Neurological History: Reports: Alzheimers Disease Psychiatric History: Reports: Dementia Social & Family History - Family History Family Medical History: Noncontributory - Caffeine Use Caffeine Use: Reports: None ED ROS GENERAL - Review of Systems Review Of Systems: Unable To Obtain Reason Not Obtained: altered mental status ED EXAM, SEPSIS - Physical Exam Exam: See Below Exam Limited By: Altered Mental Status General Appearance: Lethargic, Cachetic Ears: Normal External Exam Nose: Normal Inspection Head: Atraumatic, Normocephalic Neck: Normal Inspection Respiratory/Chest: Lungs Clear Cardiovascular: Regular Rate, Rhythm GI/Abdominal Exam: Soft, Non-Tender Back: Other (stage I sacral pressure ulcer) Extremities: Normal Inspection Neurological: Alert, Other (occasionally follows basic commands. increased tone. moving all extremities) Skin: Warm, Dry, Erythema (sacrum) Course - Vital Signs Last Recorded V/S: Last Vital Signs Temp 36.2 C 10/05/19 13:36 Pulse 83 10/05/19 13:36 Resp 14 10/05/19 13:36 BP 124/62 10/05/19 13:36 Pulse Ox 94 L 10/05/19 13:36 - Orders/Labs/Meds Orders: Active Orders 24 hr Category Date Time Status Oxygen Therapy, ED [RC] STAT Care 10/05/19 13:24 Active Chest 1V Frontal [CR] Stat Exams 10/05/19 13:20 Stop Req CULTURE BLOOD [BC] Urgent Lab 10/05/19 13:26 Received CULTURE BLOOD [BC] Urgent Lab 10/05/19 13:36 Received CULTURE URINE [RM] Stat Lab 10/05/19 13:29 Received Sodium Chloride 0.9% [Normal Saline] 1,000 ml Med 10/05/19 14:00 Active IV ASDIRECTED Sodium Chloride 0.9% [Saline Flush] Med 10/05/19 13:20 Active 10 ml FLUSH ASDIRECTED PRN Blood Culture x2 Reflex Set [OM.PC] Urgent Oth 10/05/19 13:20 Ordered Saline Lock Insert [OM.PC] Stat Oth 10/05/19 13:20 Ordered Severe Sepsis Onset Time [OM.PC] Stat Oth 10/05/19 13:20 Ordered Medication Orders Sodium Chloride (Normal Saline) 1,000 mls @ 999 mls/hr IV ASDIRECTED JULISSA Last Admin: 10/05/19 14:05 Dose: 999 mls/hr Sodium Chloride (Saline Flush) 10 ml FLUSH ASDIRECTED PRN PRN Reason: Keep Vein Open Last Admin: 10/05/19 14:07 Dose: 10 ml Labs: Laboratory Tests 10/05/19 10/05/19 10/05/19 Range/Units 13:26 13:26 13:26 WBC 11.6 H (4.5-11.0) K/uL RBC 4.21 (3.30-5.50) M/uL Hgb 13.1 (12.0-15.0) g/dL Hct 42.6 (36.0-48.0) % MCV 101 H (80-98) fL MCH 31 (27-31) pg MCHC 31 L (32-36) % Plt Count 242 (150-400) K/uL Neut % (Auto) 89 H (36-66) % Lymph % (Auto) 4 L (24-44) % Mccone % (Auto) 7 H (2-6) % Eos % (Auto) 0 L (2-4) % Baso % (Auto) 0 (0-1) % PT 11.4 (9.5-12.0) sec INR 1.06 (0.80-1.20) Sodium 154 H (140-148) mmol/L Potassium 4.2 (3.6-5.2) mmol/L Chloride 113 H (100-108) mmol/L Carbon Dioxide 28 (21-32) mmol/L Anion Gap 17.2 H (5.0-14.0) mmol/L BUN 38 H (7-18) mg/dL Creatinine 1.4 H (0.6-1.0) mg/dL Est Cr Clr Drug Dosing 21.42 mL/min Estimated GFR (MDRD) 36 L (>60) Glucose 159 H (74-106) mg/dL Lactic Acid (0.4-2.0) mmol/L Calcium 9.3 (8.5-10.1) mg/dL Total Bilirubin 1.3 H D (0.2-1.0) mg/dL AST 44 H D (15-37) U/L ALT 61 D (12-78) U/L Alkaline Phosphatase 91 D (46-116) U/L Creatine Kinase (26-192) U/L Total Protein 7.8 (6.4-8.2) g/dL Albumin 3.4 (3.4-5.0) g/dL Globulin 4.4 H (2.3-3.5) g/dL Albumin/Globulin Ratio 0.8 L (1.2-2.2) Urine Color (YELLOW) Urine Appearance (CLEAR) Urine pH (5.0-8.0) Ur Specific Abie (1.008-1.030) Urine Protein (NEGATIVE) mg/dL Urine Glucose (UA) (NEGATIVE) mg/dL Urine Ketones (NEGATIVE) mg/dL Urine Occult Blood (NEGATIVE) Urine Nitrite (NEGATIVE) Urine Bilirubin (NEGATIVE) Urine Urobilinogen (0.2-1.0) EU/dL Ur Leukocyte Esterase (NEGATIVE) Urine RBC (0-5) Urine WBC (0-5) Ur Epithelial Cells Amorphous Sediment Urine Bacteria Urine Mucus 10/05/19 10/05/19 10/05/19 Range/Units 13:26 13:26 13:29 WBC (4.5-11.0) K/uL RBC (3.30-5.50) M/uL Hgb (12.0-15.0) g/dL Hct (36.0-48.0) % MCV (80-98) fL MCH (27-31) pg MCHC (32-36) % Plt Count (150-400) K/uL Neut % (Auto) (36-66) % Lymph % (Auto) (24-44) % Mccone % (Auto) (2-6) % Eos % (Auto) (2-4) % Baso % (Auto) (0-1) % PT (9.5-12.0) sec INR (0.80-1.20) Sodium (140-148) mmol/L Potassium (3.6-5.2) mmol/L Chloride (100-108) mmol/L Carbon Dioxide (21-32) mmol/L Anion Gap (5.0-14.0) mmol/L BUN (7-18) mg/dL Creatinine (0.6-1.0) mg/dL Est Cr Clr Drug Dosing mL/min Estimated GFR (MDRD) (>60) Glucose (74-106) mg/dL Lactic Acid 4.1 H (0.4-2.0) mmol/L Calcium (8.5-10.1) mg/dL Total Bilirubin (0.2-1.0) mg/dL AST (15-37) U/L ALT (12-78) U/L Alkaline Phosphatase (46-116) U/L Creatine Kinase 174 (26-192) U/L Total Protein (6.4-8.2) g/dL Albumin (3.4-5.0) g/dL Globulin (2.3-3.5) g/dL Albumin/Globulin Ratio (1.2-2.2) Urine Color Yellow (YELLOW) Urine Appearance Slightly cloudy A (CLEAR) Urine pH 5.5 (5.0-8.0) Ur Specific Abie 1.025 (1.008-1.030) Urine Protein 100 H (NEGATIVE) mg/dL Urine Glucose (UA) Negative (NEGATIVE) mg/dL Urine Ketones Negative (NEGATIVE) mg/dL Urine Occult Blood Moderate H (NEGATIVE) Urine Nitrite Positive H (NEGATIVE) Urine Bilirubin Negative (NEGATIVE) Urine Urobilinogen 0.2 (0.2-1.0) EU/dL Ur Leukocyte Esterase Small H (NEGATIVE) Urine RBC 10-20 H (0-5) Urine WBC 50-75 H (0-5) Ur Epithelial Cells Few Amorphous Sediment Not seen Urine Bacteria Many Urine Mucus Not seen Meds: Medications Generic Name Dose Route Start Last Admin Trade Name Freq PRN Reason Stop Dose Admin Sodium Chloride 1,000 mls @ 999 mls/hr 10/05/19 14:00 10/05/19 14:05 Normal Saline IV 999 mls/hr ASDIRECTED JULISSA Administration Sodium Chloride 10 ml 10/05/19 13:20 10/05/19 14:07 Saline Flush FLUSH 10 ml ASDIRECTED PRN Administration Keep Vein Open Discontinued Medications Generic Name Dose Route Start Last Admin Trade Name Freq PRN Reason Stop Dose Admin Ceftriaxone Sodium 2 gm/ 50 mls @ 100 mls/hr 10/05/19 13:25 10/05/19 14:07 Sodium Chloride IV 10/05/19 13:54 100 mls/hr ONETIME ONE Administration Sodium Chloride 999 ml 10/05/19 13:27 Normal Saline IV 10/05/19 13:28 NOW STA - Re-Assessments/Exams Free Text/Narrative Re-Assessment/Exam: 84-year-old presents by EMS for altered mental status. Unclear what her baseline is, he may have underlying dementia, but reportedly lives independently with her . Initially in A. fib with RVR in route, this resolved upon arrival to the ED. Blood pressure has stabilized somewhat here. Exam notable for sacral stage I pressure ulcer, unclear how long she has been laying on her back presumably for some time. Although she is obtunded she is protecting her airway. She has no focal motor findings but limited exam. Initiating a sepsis workup, we'll give a dose of ceftriaxone, suspect this is urinary infection but could obtain a head CT as well as CAP given her obtundation and inability to provide any history. Her family is reportedly en route so we can gather history and discuss code status should she continue to decline. 10/05/19 13:35 Free Text/Narrative Re-Assessment/Exam: Labs remarkable for a lactate of 4, positive UA, appears hypovolemic by labs as well with an JOAO. Given concern she may have been down for some time I did check a CK for evidence rhabdomyolysis, this is negative. CT head unremarkable. Formal read on CAP is pending, I do not appreciate renal stones in the setting of her UTI, there does appear to be a small left-sided aspiration pneumonia. Have discussed her case with the hospitalist and we're going to admit her for further management of presumed urinary tract infection and aspiration pneumonia. Her is currently in route to the hospital and will be updated when he arrives. 10/05/19 15:00 Departure - Departure Time of Disposition: 15:03 Disposition: Admitted As Inpatient 66 Clinical Impression: Gram negative sepsis, Metabolic encephalopathy, Hypernatremia, JOAO (acute kidney injury) Aspiration pneumonia Qualifiers: Aspiration pneumonia type: unspecified Laterality: left Lung location: lower lobe of lung Qualified Code(s): J69.0 - Pneumonitis due to inhalation of food and vomit Pressure ulcer Qualifiers: Pressure injury location: sacral region Pressure injury stage: stage 1 Qualified Code(s): L89.151 - Pressure ulcer of sacral region, stage 1 - Discharge Information Critical Care Note - Critical Care Note Total Time (mins): 33 Comments: 33 minutes of critical care time spent providing airway monitoring, work-up of undifferentiated coma, and treatment of severe sepsis. - My Orders Last 24 Hours: My Active Orders 10/05/19 13:20 Chest 1V Frontal [CR] Stat Sodium Chloride 0.9% [Saline Flush] 10 ml FLUSH ASDIRECTED PRN Blood Culture x2 Reflex Set [OM.PC] Urgent Saline Lock Insert [OM.PC] Stat Severe Sepsis Onset Time [OM.PC] Stat 10/05/19 13:24 Oxygen Therapy, ED [RC] STAT 10/05/19 13:26 CULTURE BLOOD [BC] Urgent 10/05/19 13:29 CULTURE URINE [RM] Stat 10/05/19 13:36 CULTURE BLOOD [BC] Urgent 10/05/19 14:00 Sodium Chloride 0.9% [Normal Saline] 1,000 ml IV ASDIRECTED - Assessment/Plan Last 24 Hours: My Active Orders 10/05/19 13:20 Chest 1V Frontal [CR] Stat Sodium Chloride 0.9% [Saline Flush] 10 ml FLUSH ASDIRECTED PRN Blood Culture x2 Reflex Set [OM.PC] Urgent Saline Lock Insert [OM.PC] Stat Severe Sepsis Onset Time [OM.PC] Stat 10/05/19 13:24 Oxygen Therapy, ED [RC] STAT 10/05/19 13:26 CULTURE BLOOD [BC] Urgent 10/05/19 13:29 CULTURE URINE [RM] Stat 10/05/19 13:36 CULTURE BLOOD [BC] Urgent 10/05/19 14:00 Sodium Chloride 0.9% [Normal Saline] 1,000 ml IV ASDIRECTED
[2019-10-05] MEDS ORDERED: Sodium Chloride 0.9% 1,000 ML IV SCH ×2 (14:00→16:44)
--- NOTE | 2019-10-05 14:42 | CRLCT ---
INDICATION: Altered mental status. TECHNIQUE: Head CT without contrast. COMPARISON: None FINDINGS: CSF spaces: Within normal limits for age. Brain parenchyma and extra-axial spaces: There are nonspecific low attenuation white matter changes consistent with chronic microvascular disease. No sign of mass, hemorrhage, or midline shift. Skull base and calvarium: The visualized paranasal sinuses and mastoid air cells demonstrate no acute or significant findings. The visualized orbits are grossly unremarkable. No skull fractures. IMPRESSION: No acute or significant findings. Please note that all CT scans at this facility use dose modulation, iterative reconstruction, and/or weight-based dosing when appropriate to reduce radiation dose to as low as reasonably achievable. Dictated by Sky Sharpe MD @ Oct 05 2019 2:34PM Signed by Dr. Sky Sharpe @ Oct 05 2019 2:40PM
--- NOTE | 2019-10-05 14:55 | CRLCT ---
INDICATION: Hypotension. Sepsis. TECHNIQUE: CT chest, abdomen and pelvis acquired without contrast. COMPARISON: None. FINDINGS: CHEST: Cardiovascular structures: Heart size is normal. Ascending aorta is aneurysmal measuring 4.5 cm in diameter. Coronary artery atherosclerosis is present. Mediastinum and robel: Multiple ill-defined nodules present within an enlarged thyroid gland. No other masses and no lymphadenopathy. Lungs and pleura: Airspace infiltrates are present in the left lower lobe and to a lesser extent left upper lobe. Few small subcentimeter peripheral nodules are in the right lung. Pleural spaces are clear. Chest wall and axilla: No mass or adenopathy. Bones: Moderate compression fracture of the T8 vertebral body is likely chronic. No other significant finding. ABDOMEN AND PELVIS: Liver: Unremarkable. Gallbladder and bile ducts: Unremarkable. Pancreas: Unremarkable. Spleen: Unremarkable. Adrenal glands: Unremarkable. Kidneys: Unremarkable. GI tract: Distal diverticulosis present. Otherwise unremarkable. Vascular structures: Abdominal aortic atherosclerosis without aneurysm. Lymph nodes: Unremarkable. Miscellaneous: Unremarkable. No free air or significant free fluid. Pelvic Organs: Unremarkable. Bones: Moderate compression fracture of the L1 vertebral body could be subacute. No other significant finding. IMPRESSION: 1. Left lower lobe pneumonia. 2. Multinodular goiter. 3. 4.5 cm ascending aortic aneurysm. 4. No other acute or clinical findings. Dictated by Sky Sharpe MD @ 10/05/2019 2:53:35 PM Please note that all CT scans at this facility use dose modulation, iterative reconstruction, and/or weight-based dosing when appropriate to reduce radiation dose to as low as reasonably achievable. Dictated by: Sky Sharpe MD @ 10/05/2019 14:53:40 (Electronically Signed)
--- NOTE | 2019-10-05 16:34 | PCM.HP.2 ---
H&P History of Present Illness - General Date of Service: 10/05/19 Admit Problem/Dx: Admission Diagnosis/Problem Admission Diagnosis/Problem Pneumonia Source of Information: Family, Provider, RN Notes Reviewed. No: Patient History Limitations: Reports: Altered Mental Status (Severe dementia, decreased LOC) - History of Present Illness Initial Comments - Free Text/Narative: Ms. Palma is an 84-year-old woman who was admitted through the emergency department with increased weakness and decreased level of consciousness secondary to pneumonia with sepsis and underlying urinary tract infection. Ms. Palma is more lethargic than usual, somewhat difficult to arouse. She has a baseline history of severe dementia and is cared for her at home. Because of her dementia and decreased level of consciousness she is unable to provide a meaningful history concerning recent symptoms or review of systems. In discussion with her he reports that she was fine yesterday, today very weak and more lethargic. Because of weakness he had her brought in by ambulance for further evaluation and management. - Related Data Allergies/Adverse Reactions: Allergies Allergy/AdvReac Type Severity Reaction Status Date / Time Penicillins Allergy Rash Verified 10/05/19 13:40 Home Medications: Home Meds Donepezil HCl 10 mg PO BEDTIME 11/12/18 [History] Memantine HCl 5 mg PO BID 11/12/18 [History] Acetaminophen 650 mg PO ASDIRECTED 10/05/19 [History] Meclizine [Antivert] 25 mg PO DAILY PRN 10/05/19 [History] Past Medical History HEENT History: Reports: Cataract, Impaired Vision [employer] History: Reports: Musculoskeletal History: Reports: Arthritis Neurological History: Reports: Alzheimers Disease Psychiatric History: Reports: Dementia Social & Family History - Family History Family Medical History: Noncontributory - Tobacco Use Smoking Status *Q: Unknown Ever Smoked - Caffeine Use Caffeine Use: Reports: None H&P Review of Systems - Review of Systems: Review Of Systems: See Below (Severe dementia) General: Reports: ROS unobtainable (Severe dementia and decreased level of consciousness) Exam - Exam Exam: See Below - Vital Signs Vital Signs: Last Vital Signs Temp 97.2 F 10/05/19 13:36 Pulse 71 10/05/19 15:11 Resp 14 10/05/19 15:11 BP 134/57 L 10/05/19 15:11 Pulse Ox 96 10/05/19 15:11 Weight: 100 lb - Exam Quality Assessment: DVT Prophylaxis General: Lethargic HEENT: Conjunctiva Clear, Normal Nasal Septum, Posterior Pharynx Clear, Pupils Equal. No: Mucosa Moist & [place] Neck: Supple, Trachea Midline, +2 Carotid Pulse wo Bruit Lungs: Decreased Breath Sounds, Rhonchi. No: Rales, Rub, Wheezing Cardiovascular: Regular Rate, Regular Rhythm, Normal S1, Normal S2. No: Systolic Murmur, Diastolic Murmur GI/Abdominal Exam: Soft, Non-Tender, No Organomegaly, No Distention Extremities: Non-Tender, No Pedal Edema Skin: Warm, Dry, Intact - Patient Data Lab Results Last 24 hrs: Laboratory Results - last 24 hr 10/05/19 10/05/19 10/05/19 Range/Units 13:26 13:26 13:26 WBC 11.6 H (4.5-11.0) K/uL RBC 4.21 (3.30-5.50) M/uL Hgb 13.1 (12.0-15.0) g/dL Hct 42.6 (36.0-48.0) % MCV 101 H (80-98) fL MCH 31 (27-31) pg MCHC 31 L (32-36) % Plt Count 242 (150-400) K/uL Neut % (Auto) 89 H (36-66) % Lymph % (Auto) 4 L (24-44) % Eaton % (Auto) 7 H (2-6) % Eos % (Auto) 0 L (2-4) % Baso % (Auto) 0 (0-1) % PT 11.4 (9.5-12.0) sec INR 1.06 (0.80-1.20) Sodium 154 H (140-148) mmol/L Potassium 4.2 (3.6-5.2) mmol/L Chloride 113 H (100-108) mmol/L Carbon Dioxide 28 (21-32) mmol/L Anion Gap 17.2 H (5.0-14.0) mmol/L BUN 38 H (7-18) mg/dL Creatinine 1.4 H (0.6-1.0) mg/dL Est Cr Clr Drug Dosing 21.42 mL/min Estimated GFR (MDRD) 36 L (>60) Glucose 159 H (74-106) mg/dL Lactic Acid (0.4-2.0) mmol/L Calcium 9.3 (8.5-10.1) mg/dL Total Bilirubin 1.3 H D (0.2-1.0) mg/dL AST 44 H D (15-37) U/L ALT 61 D (12-78) U/L Alkaline Phosphatase 91 D (46-116) U/L Creatine Kinase (26-192) U/L Total Protein 7.8 (6.4-8.2) g/dL Albumin 3.4 (3.4-5.0) g/dL Globulin 4.4 H (2.3-3.5) g/dL Albumin/Globulin Ratio 0.8 L (1.2-2.2) TSH, Ultra Sensitive (0.358-3.740) uIU/mL Urine Color (YELLOW) Urine Appearance (CLEAR) Urine pH (5.0-8.0) Ur Specific Johnson (1.008-1.030) Urine Protein (NEGATIVE) mg/dL Urine Glucose (UA) (NEGATIVE) mg/dL Urine Ketones (NEGATIVE) mg/dL Urine Occult Blood (NEGATIVE) Urine Nitrite (NEGATIVE) Urine Bilirubin (NEGATIVE) Urine Urobilinogen (0.2-1.0) EU/dL Ur Leukocyte Esterase (NEGATIVE) Urine RBC (0-5) Urine WBC (0-5) Ur Epithelial Cells Amorphous Sediment Urine Bacteria Urine Mucus 10/05/19 10/05/19 10/05/19 Range/Units 13:26 13:26 13:29 WBC (4.5-11.0) K/uL RBC (3.30-5.50) M/uL Hgb (12.0-15.0) g/dL Hct (36.0-48.0) % MCV (80-98) fL MCH (27-31) pg MCHC (32-36) % Plt Count (150-400) K/uL Neut % (Auto) (36-66) % Lymph % (Auto) (24-44) % Eaton % (Auto) (2-6) % Eos % (Auto) (2-4) % Baso % (Auto) (0-1) % PT (9.5-12.0) sec INR (0.80-1.20) Sodium (140-148) mmol/L Potassium (3.6-5.2) mmol/L Chloride (100-108) mmol/L Carbon Dioxide (21-32) mmol/L Anion Gap (5.0-14.0) mmol/L BUN (7-18) mg/dL Creatinine (0.6-1.0) mg/dL Est Cr Clr Drug Dosing mL/min Estimated GFR (MDRD) (>60) Glucose (74-106) mg/dL Lactic Acid 4.1 H (0.4-2.0) mmol/L Calcium (8.5-10.1) mg/dL Total Bilirubin (0.2-1.0) mg/dL AST (15-37) U/L ALT (12-78) U/L Alkaline Phosphatase (46-116) U/L Creatine Kinase 174 (26-192) U/L Total Protein (6.4-8.2) g/dL Albumin (3.4-5.0) g/dL Globulin (2.3-3.5) g/dL Albumin/Globulin Ratio (1.2-2.2) TSH, Ultra Sensitive (0.358-3.740) uIU/mL Urine Color Yellow (YELLOW) Urine Appearance Slightly cloudy A (CLEAR) Urine pH 5.5 (5.0-8.0) Ur Specific Johnson 1.025 (1.008-1.030) Urine Protein 100 H (NEGATIVE) mg/dL Urine Glucose (UA) Negative (NEGATIVE) mg/dL Urine Ketones Negative (NEGATIVE) mg/dL Urine Occult Blood Moderate H (NEGATIVE) Urine Nitrite Positive H (NEGATIVE) Urine Bilirubin Negative (NEGATIVE) Urine Urobilinogen 0.2 (0.2-1.0) EU/dL Ur Leukocyte Esterase Small H (NEGATIVE) Urine RBC 10-20 H (0-5) Urine WBC 50-75 H (0-5) Ur Epithelial Cells Few Amorphous Sediment Not seen Urine Bacteria Many Urine Mucus Not seen 10/05/19 Range/Units 15:29 WBC (4.5-11.0) K/uL RBC (3.30-5.50) M/uL Hgb (12.0-15.0) g/dL Hct (36.0-48.0) % MCV (80-98) fL MCH (27-31) pg MCHC (32-36) % Plt Count (150-400) K/uL Neut % (Auto) (36-66) % Lymph % (Auto) (24-44) % Eaton % (Auto) (2-6) % Eos % (Auto) (2-4) % Baso % (Auto) (0-1) % PT (9.5-12.0) sec INR (0.80-1.20) Sodium (140-148) mmol/L Potassium (3.6-5.2) mmol/L Chloride (100-108) mmol/L Carbon Dioxide (21-32) mmol/L Anion Gap (5.0-14.0) mmol/L BUN (7-18) mg/dL Creatinine (0.6-1.0) mg/dL Est Cr Clr Drug Dosing mL/min Estimated GFR (MDRD) (>60) Glucose (74-106) mg/dL Lactic Acid (0.4-2.0) mmol/L Calcium (8.5-10.1) mg/dL Total Bilirubin (0.2-1.0) mg/dL AST (15-37) U/L ALT (12-78) U/L Alkaline Phosphatase (46-116) U/L Creatine Kinase (26-192) U/L Total Protein (6.4-8.2) g/dL Albumin (3.4-5.0) g/dL Globulin (2.3-3.5) g/dL Albumin/Globulin Ratio (1.2-2.2) TSH, Ultra Sensitive 0.417 (0.358-3.740) uIU/mL Urine Color (YELLOW) Urine Appearance (CLEAR) Urine pH (5.0-8.0) Ur Specific Johnson (1.008-1.030) Urine Protein (NEGATIVE) mg/dL Urine Glucose (UA) (NEGATIVE) mg/dL Urine Ketones (NEGATIVE) mg/dL Urine Occult Blood (NEGATIVE) Urine Nitrite (NEGATIVE) Urine Bilirubin (NEGATIVE) Urine Urobilinogen (0.2-1.0) EU/dL Ur Leukocyte Esterase (NEGATIVE) Urine RBC (0-5) Urine WBC (0-5) Ur Epithelial Cells Amorphous Sediment Urine Bacteria Urine Mucus Result Diagrams: 10/05/19 13:26 10/05/19 13:26 *Q Meaningful Use (ADM) - VTE Risk Assess *Q Each Risk Factor Represents 1 Point: Abnormal Pulmonary Function (COPD) Total Score 1 Point Risk Factors: 1 Each Risk Factor Represents 2 Points: None Total Score 2 Point Risk Factors: 0 Each Risk Factor Represents 3 Points: Age 75 Years or Greater Total Score 3 Point Risk Factors: 3 Each Risk Factor Represents 5 Points: None Total Score 5 Point Risk Factors: 0 Venous Thromboembolism Risk Factor Score *Q: 4 Problem List Initiated/Reviewed/Updated: Yes Orders Last 24hrs: Active Orders 24 hr Category Date Time Status Patient Status Manage Transfer [TRANSFER] Routine ADT 10/05/19 16:09 Ordered Oxygen Therapy, ED [RC] STAT Care 10/05/19 13:24 Active CULTURE BLOOD [BC] Urgent Lab 10/05/19 13:26 Received CULTURE BLOOD [BC] Urgent Lab 10/05/19 13:36 Received CULTURE URINE [RM] Stat Lab 10/05/19 13:29 Received Sodium Chloride 0.9% [Normal Saline] 1,000 ml Med 10/05/19 14:00 Active IV ASDIRECTED Sodium Chloride 0.9% [Saline Flush] Med 10/05/19 13:20 Active 10 ml FLUSH ASDIRECTED PRN Blood Culture x2 Reflex Set [OM.PC] Urgent Oth 10/05/19 13:20 Ordered Saline Lock Insert [OM.PC] Stat Oth 10/05/19 13:20 Ordered Severe Sepsis Onset Time [OM.PC] Stat Oth 10/05/19 13:20 Ordered Resuscitation Status Routine Resus Stat 10/05/19 16:11 Ordered Medication Orders Sodium Chloride (Normal Saline) 1,000 mls @ 999 mls/hr IV ASDIRECTED JULISSA Last Admin: 10/05/19 14:05 Dose: 999 mls/hr Sodium Chloride (Saline Flush) 10 ml FLUSH ASDIRECTED PRN PRN Reason: Keep Vein Open Last Admin: 10/05/19 14:07 Dose: 10 ml Assessment/Plan Comment:: ASSESSMENT AND PLAN LEFT LUNG PNEUMONIA WITH SEPSIS- reports that she was in her normal state yesterday, today very weak and lethargic today. Evaluation in the emergency department shows modest elevation in white blood cell count and lactic acid. She was tachycardic when initially picked up by EMS and hypotensive. She has stabilized in the emergency department and received her first dose of antibiotic therapy. Question as to whether she may have aspirated with her decreased level of consciousness and underlying dementia. -Blood cultures pending -IV fluids for hydration and management of sepsis -Expanded antibiotic coverage; meropenem and doxycycline, pending culture results -Repeat lactic acid level later today URINARY TRACT INFECTION-infection evident on urinalysis -Urine culture pending -Antibiotic therapy as above DEHYDRATION-secondary to current illness -IV fluids as above DECREASED LEVEL OF CONSCIOUSNESS-secondary to underlying dementia and current illness -Expect improvement to baseline with current management HYPERNATREMIA-secondary to dehydration -Reassess sodium level later this afternoon and in a.m. PALLIATIVE CARE-discussed with , he does not want aggressive interventions such as intubation or CPR MAINTENANCE ISSUES -DVT prophylaxis; Lovenox 30 mg subcutaneous daily -GI prophylaxis; not indicated -Esquivel catheter; not indicated -Nutrition; mechanical soft diet -Nicotine dependence; not required CODE STATUS-DNR/DNI ADMISSION STATUS-patient will be admitted to inpatient status, expect at least a 2 night hospital stay for evaluation and management of problems as outlined above. At the time of this admission I do not reasonably expected evaluation and management of this problem will require more than a 96 hour hospital stay. DISPOSITION-anticipate discharge to home after the hospital stay. PRIMARY CARE PROVIDER- - Mortality Measure Prognosis:: Poor
[2019-10-05] MEDS ORDERED: Polyethylene Glycol 3350 Powder 17 GM Packet PO PRN (16:44)
[2019-10-05] MEDS ORDERED: Meropenem 1 GM in Sodium Chloride 0.9% 100 ML IV SCH (16:44)
[2019-10-05] MEDS ORDERED: Albuterol 0.083% 2.5 MG/3 ML Neb Soln NEB PRN (16:44)
[2019-10-05] MEDS ORDERED: Acetaminophen 325 MG Tab PO PRN (16:44)
[2019-10-05] MEDS ORDERED: Ondansetron 4 MG/2 ML SDV IV PRN (16:44)
[2019-10-05] MEDS ORDERED: Enoxaparin 30 MG/0.3 ML Syringe SUBCUT SCH (16:44)
[2019-10-05] MEDS: Doxycycline 100 MG in Sodium Chloride 0.9% 100 ML IV SCH (17:26)
[2019-10-05] MEDS: Lactobacillus Rhamnosus GG (Probiotic) Cap PO SCH ×3 (17:31→21:26)
[2019-10-05] MEDS: Meropenem 500 MG in Sodium Chloride 0.9% 50 ML IV SCH (19:27)
[2019-10-05] MEDS: Memantine 10 MG Tab PO SCH ×2 (21:22→21:26)
[2019-10-05] MEDS: Donepezil 10 MG Tab PO SCH ×2 (21:22→21:27)
[2019-10-06] MEDS: Dextrose 5% in Water 1,000 ML IV SCH ×2 (03:00→16:55)
[2019-10-06] MEDS: Doxycycline 100 MG in Sodium Chloride 0.9% 100 ML IV SCH ×2 (04:23→16:55)
[2019-10-06] MEDS: Meropenem 500 MG in Sodium Chloride 0.9% 50 ML IV SCH (05:31)
[2019-10-06] MEDS: Potassium Chloride 20 MEQ, Lidocaine 1% 2 ML in Sodium Chloride 0.9% 100 ML IV SCH ×2 (09:59→11:56)
[2019-10-06] MEDS: Lactobacillus Rhamnosus GG (Probiotic) Cap PO SCH ×2 (10:04→20:56)
[2019-10-06] MEDS: Memantine 10 MG Tab PO SCH ×2 (10:04→20:56)
--- NOTE | 2019-10-06 11:52 | PCM.PN ---
- General Info Date of Service: 10/06/19 Subjective Update: Ms. Palma unfortunately remained unresponsive and lethargic since admission. No significant improvement noted with hydration, currently not taking oral medications. She has remained afebrile and vital signs have been within desired range. She is unable to provide a meaningful history concerning symptoms or review of systems because of her severe dementia and lethargy. - Patient Data Vitals - Most Recent: Last Vital Signs Temp 97.1 F 10/06/19 10:40 Pulse 72 10/06/19 10:40 Resp 16 10/06/19 10:40 BP 138/76 10/06/19 10:40 Pulse Ox 94 L 10/06/19 10:40 Weight - Most Recent: 82 lb 6 oz Lab Results Last 24 Hours: Laboratory Results - last 24 hr 10/05/19 10/05/19 10/05/19 Range/Units 13:26 13:26 13:26 WBC 11.6 H (4.5-11.0) K/uL RBC 4.21 (3.30-5.50) M/uL Hgb 13.1 (12.0-15.0) g/dL Hct 42.6 (36.0-48.0) % MCV 101 H (80-98) fL MCH 31 (27-31) pg MCHC 31 L (32-36) % Plt Count 242 (150-400) K/uL Neut % (Auto) 89 H (36-66) % Lymph % (Auto) 4 L (24-44) % Nelson % (Auto) 7 H (2-6) % Eos % (Auto) 0 L (2-4) % Baso % (Auto) 0 (0-1) % PT 11.4 (9.5-12.0) sec INR 1.06 (0.80-1.20) Sodium 154 H (140-148) mmol/L Potassium 4.2 (3.6-5.2) mmol/L Chloride 113 H (100-108) mmol/L Carbon Dioxide 28 (21-32) mmol/L Anion Gap 17.2 H (5.0-14.0) mmol/L BUN 38 H (7-18) mg/dL Creatinine 1.4 H (0.6-1.0) mg/dL Est Cr Clr Drug Dosing 21.42 mL/min Estimated GFR (MDRD) 36 L (>60) Glucose 159 H (74-106) mg/dL Lactic Acid (0.4-2.0) mmol/L Calcium 9.3 (8.5-10.1) mg/dL Total Bilirubin 1.3 H D (0.2-1.0) mg/dL AST 44 H D (15-37) U/L ALT 61 D (12-78) U/L Alkaline Phosphatase 91 D (46-116) U/L Creatine Kinase (26-192) U/L Total Protein 7.8 (6.4-8.2) g/dL Albumin 3.4 (3.4-5.0) g/dL Globulin 4.4 H (2.3-3.5) g/dL Albumin/Globulin Ratio 0.8 L (1.2-2.2) TSH, Ultra Sensitive (0.358-3.740) uIU/mL Urine Color (YELLOW) Urine Appearance (CLEAR) Urine pH (5.0-8.0) Ur Specific Golden (1.008-1.030) Urine Protein (NEGATIVE) mg/dL Urine Glucose (UA) (NEGATIVE) mg/dL Urine Ketones (NEGATIVE) mg/dL Urine Occult Blood (NEGATIVE) Urine Nitrite (NEGATIVE) Urine Bilirubin (NEGATIVE) Urine Urobilinogen (0.2-1.0) EU/dL Ur Leukocyte Esterase (NEGATIVE) Urine RBC (0-5) Urine WBC (0-5) Ur Epithelial Cells Amorphous Sediment Urine Bacteria Urine Mucus 10/05/19 10/05/19 10/05/19 Range/Units 13:26 13:26 13:29 WBC (4.5-11.0) K/uL RBC (3.30-5.50) M/uL Hgb (12.0-15.0) g/dL Hct (36.0-48.0) % MCV (80-98) fL MCH (27-31) pg MCHC (32-36) % Plt Count (150-400) K/uL Neut % (Auto) (36-66) % Lymph % (Auto) (24-44) % Nelson % (Auto) (2-6) % Eos % (Auto) (2-4) % Baso % (Auto) (0-1) % PT (9.5-12.0) sec INR (0.80-1.20) Sodium (140-148) mmol/L Potassium (3.6-5.2) mmol/L Chloride (100-108) mmol/L Carbon Dioxide (21-32) mmol/L Anion Gap (5.0-14.0) mmol/L BUN (7-18) mg/dL Creatinine (0.6-1.0) mg/dL Est Cr Clr Drug Dosing mL/min Estimated GFR (MDRD) (>60) Glucose (74-106) mg/dL Lactic Acid 4.1 H (0.4-2.0) mmol/L Calcium (8.5-10.1) mg/dL Total Bilirubin (0.2-1.0) mg/dL AST (15-37) U/L ALT (12-78) U/L Alkaline Phosphatase (46-116) U/L Creatine Kinase 174 (26-192) U/L Total Protein (6.4-8.2) g/dL Albumin (3.4-5.0) g/dL Globulin (2.3-3.5) g/dL Albumin/Globulin Ratio (1.2-2.2) TSH, Ultra Sensitive (0.358-3.740) uIU/mL Urine Color Yellow (YELLOW) Urine Appearance Slightly cloudy A (CLEAR) Urine pH 5.5 (5.0-8.0) Ur Specific Golden 1.025 (1.008-1.030) Urine Protein 100 H (NEGATIVE) mg/dL Urine Glucose (UA) Negative (NEGATIVE) mg/dL Urine Ketones Negative (NEGATIVE) mg/dL Urine Occult Blood Moderate H (NEGATIVE) Urine Nitrite Positive H (NEGATIVE) Urine Bilirubin Negative (NEGATIVE) Urine Urobilinogen 0.2 (0.2-1.0) EU/dL Ur Leukocyte Esterase Small H (NEGATIVE) Urine RBC 10-20 H (0-5) Urine WBC 50-75 H (0-5) Ur Epithelial Cells Few Amorphous Sediment Not seen Urine Bacteria Many Urine Mucus Not seen 10/05/19 10/05/19 10/05/19 Range/Units 15:29 20:55 20:55 WBC (4.5-11.0) K/uL RBC (3.30-5.50) M/uL Hgb (12.0-15.0) g/dL Hct (36.0-48.0) % MCV (80-98) fL MCH (27-31) pg MCHC (32-36) % Plt Count (150-400) K/uL Neut % (Auto) (36-66) % Lymph % (Auto) (24-44) % Nelson % (Auto) (2-6) % Eos % (Auto) (2-4) % Baso % (Auto) (0-1) % PT (9.5-12.0) sec INR (0.80-1.20) Sodium 156 H (140-148) mmol/L Potassium (3.6-5.2) mmol/L Chloride (100-108) mmol/L Carbon Dioxide (21-32) mmol/L Anion Gap (5.0-14.0) mmol/L BUN (7-18) mg/dL Creatinine (0.6-1.0) mg/dL Est Cr Clr Drug Dosing mL/min Estimated GFR (MDRD) (>60) Glucose (74-106) mg/dL Lactic Acid 2.2 H (0.4-2.0) mmol/L Calcium (8.5-10.1) mg/dL Total Bilirubin (0.2-1.0) mg/dL AST (15-37) U/L ALT (12-78) U/L Alkaline Phosphatase (46-116) U/L Creatine Kinase (26-192) U/L Total Protein (6.4-8.2) g/dL Albumin (3.4-5.0) g/dL Globulin (2.3-3.5) g/dL Albumin/Globulin Ratio (1.2-2.2) TSH, Ultra Sensitive 0.417 (0.358-3.740) uIU/mL Urine Color (YELLOW) Urine Appearance (CLEAR) Urine pH (5.0-8.0) Ur Specific Golden (1.008-1.030) Urine Protein (NEGATIVE) mg/dL Urine Glucose (UA) (NEGATIVE) mg/dL Urine Ketones (NEGATIVE) mg/dL Urine Occult Blood (NEGATIVE) Urine Nitrite (NEGATIVE) Urine Bilirubin (NEGATIVE) Urine Urobilinogen (0.2-1.0) EU/dL Ur Leukocyte Esterase (NEGATIVE) Urine RBC (0-5) Urine WBC (0-5) Ur Epithelial Cells Amorphous Sediment Urine Bacteria Urine Mucus 10/06/19 10/06/19 10/06/19 Range/Units 05:54 05:54 05:54 WBC 7.1 (4.5-11.0) K/uL RBC 3.66 (3.30-5.50) M/uL Hgb 11.6 L (12.0-15.0) g/dL Hct 37.2 (36.0-48.0) % MCV 102 H (80-98) fL MCH 32 H (27-31) pg MCHC 31 L (32-36) % Plt Count 199 (150-400) K/uL Neut % (Auto) 82 H (36-66) % Lymph % (Auto) 11 L (24-44) % Nelson % (Auto) 7 H (2-6) % Eos % (Auto) 0 L (2-4) % Baso % (Auto) 0 (0-1) % PT (9.5-12.0) sec INR (0.80-1.20) Sodium 154 H (140-148) mmol/L Potassium 3.5 L (3.6-5.2) mmol/L Chloride 116 H (100-108) mmol/L Carbon Dioxide 26 (21-32) mmol/L Anion Gap 15.5 H (5.0-14.0) mmol/L BUN 34 H (7-18) mg/dL Creatinine 0.9 (0.6-1.0) mg/dL Est Cr Clr Drug Dosing 27.45 mL/min Estimated GFR (MDRD) 60 (>60) Glucose 116 H (74-106) mg/dL Lactic Acid 1.8 (0.4-2.0) mmol/L Calcium 8.4 L (8.5-10.1) mg/dL Total Bilirubin (0.2-1.0) mg/dL AST (15-37) U/L ALT (12-78) U/L Alkaline Phosphatase (46-116) U/L Creatine Kinase (26-192) U/L Total Protein (6.4-8.2) g/dL Albumin (3.4-5.0) g/dL Globulin (2.3-3.5) g/dL Albumin/Globulin Ratio (1.2-2.2) TSH, Ultra Sensitive (0.358-3.740) uIU/mL Urine Color (YELLOW) Urine Appearance (CLEAR) Urine pH (5.0-8.0) Ur Specific Golden (1.008-1.030) Urine Protein (NEGATIVE) mg/dL Urine Glucose (UA) (NEGATIVE) mg/dL Urine Ketones (NEGATIVE) mg/dL Urine Occult Blood (NEGATIVE) Urine Nitrite (NEGATIVE) Urine Bilirubin (NEGATIVE) Urine Urobilinogen (0.2-1.0) EU/dL Ur Leukocyte Esterase (NEGATIVE) Urine RBC (0-5) Urine WBC (0-5) Ur Epithelial Cells Amorphous Sediment Urine Bacteria Urine Mucus Daniel Results Last 24 Hours: Microbiology 10/05/19 13:29 Urine Culture - Preliminary Urine, Catheterized Med Orders - Current: Current Medications Acetaminophen (Tylenol) 650 mg PO Q4H PRN PRN Reason: Pain (Mild 1-3)/fever Albuterol (Proventil Neb Soln) 2.5 mg NEB Q4H PRN PRN Reason: Shortness Of Breath/wheezing Donepezil HCl (Aricept) 10 mg PO BEDTIME [facility] Last Admin: 10/05/19 21:27 Dose: Not Given Enoxaparin Sodium (Lovenox) 30 mg SUBCUT Q24H [facility] Doxycycline Hyclate 100 mg/ (Sodium Chloride) 100 mls @ 100 mls/hr IV Q12H [facility] Last Admin: 10/06/19 04:23 Dose: 100 mls/hr Dextrose/Water (Dextrose 5% In Water) 1,000 mls @ 75 mls/hr IV ASDIRECTED [facility] Last Admin: 10/06/19 03:00 Dose: 75 mls/hr Meropenem 1 gm/ Sodium (Chloride) 100 mls @ 200 mls/hr IV Q12H [facility] Potassium Chloride 20 meq/Lidocaine HCl 2 ml/ Sodium Chloride 112 mls @ 56 mls/ hr IV Q2H [facility] Stop: 10/06/19 13:59 Last Admin: 10/06/19 09:59 Dose: 56 mls/hr Influenza Virus Vaccine (Fluzone High-Dose 2018- Syringe) 180 mcg IM .ONCE ONE Stop: 10/08/19 10:01 Lactobacillus Rhamnosus (Culturelle) 1 cap PO BID [facility] Last Admin: 10/06/19 10:04 Dose: Not Given Memantine (Namenda) 5 mg PO BID [facility] Last Admin: 10/06/19 10:04 Dose: Not Given Ondansetron HCl (Zofran) 4 mg IV Q4H PRN PRN Reason: Nausea/Vomiting Polyethylene Glycol (Miralax) 17 gm PO DAILY PRN PRN Reason: Constipation Sodium Chloride (Saline Flush) 10 ml FLUSH ASDIRECTED PRN PRN Reason: Keep Vein Open Discontinued Medications Enoxaparin Sodium (Lovenox) 30 mg SUBCUT DAILY [facility] Last Admin: 10/05/19 17:31 Dose: 30 mg Ceftriaxone Sodium 2 gm/ (Sodium Chloride) 50 mls @ 100 mls/hr IV ONETIME ONE Stop: 10/05/19 13:54 Last Admin: 10/05/19 14:07 Dose: 100 mls/hr Sodium Chloride (Normal Saline) 1,000 mls @ 999 mls/hr IV ASDIRECTED [facility] Last Admin: 10/05/19 14:05 Dose: 999 mls/hr Meropenem 1 gm/ Sodium (Chloride) 100 mls @ 200 mls/hr IV Q12H [facility] Last Admin: 10/05/19 20:47 Dose: Not Given Sodium Chloride (Normal Saline) 1,000 mls @ 125 mls/hr IV ASDIRECTED [facility] Last Admin: 10/05/19 17:25 Dose: 125 mls/hr Meropenem 500 mg/ Sodium (Chloride) 50 mls @ 100 mls/hr IV Q12H [facility] Last Admin: 10/06/19 05:31 Dose: 100 mls/hr Influenza Virus Vaccine (Pharmacy To Dose - Influenza Vaccine) 1 each IM ONETIME ONE Stop: 10/06/19 10:01 Influenza Virus Vaccine (Fluzone High-Dose 2019-20 Syringe) 180 mcg IM .ONCE ONE Stop: 10/05/19 18:01 Last Admin: 10/05/19 20:47 Dose: Not Given Sodium Chloride (Saline Flush) 10 ml FLUSH ASDIRECTED PRN PRN Reason: Keep Vein Open Last Admin: 10/05/19 14:07 Dose: 10 ml Sodium Chloride (Normal Saline) 999 ml IV NOW STA Stop: 10/05/19 13:28 Last Admin: 10/05/19 20:47 Dose: Not Given - Exam General: Lethargic Lungs: Clear to Auscultation, Normal Respiratory Effort, Decreased Breath Sounds Cardiovascular: Regular Rate, Regular Rhythm, No Murmurs GI/Abdominal Exam: Soft, Non-Tender, No Organomegaly, No Distention Extremities: Non-Tender, No Pedal Edema - Problem List Review Problem List Initiated/Reviewed/Updated: Yes - My Orders Last 24 Hours: My Active Orders 10/05/19 16:11 Resuscitation Status Routine 10/05/19 16:44 Patient Status [ADT] Routine Ambulate [RC] QID Cardiac Monitoring [RC] .As Directed Height and Weight [RC] DAILY Intake and Output [RC] QSHIFT Notify Provider Vital Signs [RC] ASDIRECTED Oxygen Therapy [RC] PRN Peripheral IV Care [RC] . DIRECTED Pulse Oximetry [RC] CONTINUOUS RT Aerosol Therapy [RC] ASDIRECTED Up With Assistance [RC] ASDIRECTED Up to Chair [RC] QID VTE/DVT Education [RC] Per Unit Routine Vital Signs [RC] Q4H Acetaminophen [Tylenol] 650 mg PO Q4H PRN Albuterol [Proventil Neb Soln] 2.5 mg NEB Q4H PRN Lactobacillus Rhamnosus GG [Culturelle] 1 cap PO BID Ondansetron [Zofran] 4 mg IV Q4H PRN Polyethylene Glycol 3350 [MiraLAX] 17 gm PO DAILY PRN Sodium Chloride 0.9% [Saline Flush] 10 ml FLUSH ASDIRECTED PRN Peripheral IV Insertion Adult [OM.PC] Routine 10/05/19 17:00 Doxycycline [Vibramycin] 100 mg Sodium Chloride 0.9% [Normal Saline] 100 ml IV Q12H 10/05/19 17:16 Influenza Vaccine Charge [RC] .DISCHARGE 10/05/19 21:00 Donepezil [Aricept] 10 mg PO BEDTIME Memantine [Namenda] 5 mg PO BID 10/05/19 22:00 Dextrose 5% in Water 1,000 ml IV ASDIRECTED 10/05/19 Lunch Mechanical Soft Diet [DIET] 10/06/19 10:00 Potassium Chloride 20 meq Lidocaine 1% [Xylocaine 1%] 2 ml Sodium Chloride 0.9 % [Normal Saline] 100 ml IV Q2H 10/06/19 17:00 SODIUM,NA [CHEM] Stat Enoxaparin [Lovenox] 30 mg SUBCUT Q24H 10/06/19 18:00 Meropenem [Merrem] 1 gm Sodium Chloride 0.9% [Normal Saline] 100 ml IV Q12H 10/07/19 05:00 BASIC METABOLIC PANEL,BMP [CHEM] Timed 10/08/19 10:00 FLU Vacc [id number](65YR UP)/PF [Fluzone High-Dose Syringe] 180 mcg IM .ONCE ONE - Plan Plan:: ASSESSMENT AND PLAN LEFT LUNG PNEUMONIA WITH SEPSIS-she has remained very lethargic since admission , white blood cell count has normalized. Sodium level remains elevated but improv from last night. We'll plan to continue expanded antibiotic coverage given high risk potential aspiration causing current pneumonia. Lactic acidosis has resolved -Blood cultures pending -Expanded antibiotic coverage; meropenem and doxycycline, pending culture results URINARY TRACT INFECTION-infection evident on urinalysis -Urine culture pending -Antibiotic therapy as above DEHYDRATION-secondary to current illness -IV fluids as above DECREASED LEVEL OF CONSCIOUSNESS-secondary to underlying dementia and current illness -Expect improvement to baseline with current management HYPERNATREMIA-worsened with normal saline, converted to D5 W last night with modest improvement in sodium level -Continue D5W fluid infusion -Reassess sodium level later this afternoon and in a.m. PALLIATIVE CARE-discussed with , he does not want aggressive interventions such as intubation or CPR MAINTENANCE ISSUES -DVT prophylaxis; Lovenox 30 mg subcutaneous daily -GI prophylaxis; not indicated -Esquivel catheter; not indicated -Nutrition; mechanical soft diet -Nicotine dependence; not required CODE STATUS-DNR/DNI ADMISSION STATUS-patient will be admitted to inpatient status, expect at least a 2 night hospital stay for evaluation and management of problems as outlined above. At the time of this admission I do not reasonably expected evaluation and management of this problem will require more than a 96 hour hospital stay. DISPOSITION-anticipate discharge to home after the hospital stay. PRIMARY CARE PROVIDER-
[2019-10-06] MEDS ORDERED: Digoxin 500 MCG/2 ML Amp IVPUSH ONE (14:00)
[2019-10-06] MEDS: Enoxaparin 30 MG/0.3 ML Syringe SUBCUT SCH (16:54)
[2019-10-06] MEDS: Meropenem 1 GM in Sodium Chloride 0.9% 100 ML IV SCH (18:07)
[2019-10-06] MEDS: Sotalol 80 MG Tab PO SCH ×2 (18:18→20:56)
[2019-10-06] MEDS: Donepezil 10 MG Tab PO SCH (20:56)
[2019-10-07] MEDS: Doxycycline 100 MG in Sodium Chloride 0.9% 100 ML IV SCH ×2 (05:25→17:08)
[2019-10-07] MEDS: Meropenem 1 GM in Sodium Chloride 0.9% 100 ML IV SCH ×2 (06:26→17:57)
[2019-10-07] MEDS: Lactobacillus Rhamnosus GG (Probiotic) Cap PO SCH ×2 (08:10→22:34)
[2019-10-07] MEDS: Sotalol 80 MG Tab PO SCH ×2 (08:10→22:34)
[2019-10-07] MEDS: Memantine 10 MG Tab PO SCH ×2 (08:11→22:34)
--- NOTE | 2019-10-07 10:19 | PCM.PN ---
- General Info Date of Service: 10/07/19 Subjective Update: No acute events overnight. Patient remains obtunded and is unable to provide any meaningful history. She has been obtunded since admission. She does groan a little when her lower abdomen is palpated. She did not have any fevers. Sodium level has been improving. Potassium level is a little low. Urine culture growing Escherichia coli but other cultures are negative. Functional Status: Reports: Other (obtunded) - Review of Systems General: Denies: Fever - Patient Data Vitals - Most Recent: Last Vital Signs Temp 36.0 C 10/07/19 08:01 Pulse 64 10/07/19 08:01 Resp 18 10/07/19 08:01 BP 103/54 L 10/07/19 08:01 Pulse Ox 95 10/07/19 08:01 Weight - Most Recent: 37 kg I&O - Last 24 Hours: Intake & Output 10/06/19 10/07/19 10/07/19 22:59 06:59 14:59 Intake Total 303 1215 Balance 303 1215 Lab Results Last 24 Hours: Laboratory Results - last 24 hr 10/06/19 10/07/19 Range/Units 16:56 04:47 Sodium 148 144 (140-148) mmol/L Potassium 3.3 L (3.6-5.2) mmol/L Chloride 109 H (100-108) mmol/L Carbon Dioxide 28 (21-32) mmol/L Anion Gap 10.3 (5.0-14.0) mmol/L BUN 24 H (7-18) mg/dL Creatinine 0.7 (0.6-1.0) mg/dL Est Cr Clr Drug Dosing 35.29 mL/min Estimated GFR (MDRD) > 60 (>60) Glucose 135 H (74-106) mg/dL Calcium 8.2 L (8.5-10.1) mg/dL Daniel Results Last 24 Hours: Microbiology 10/05/19 13:29 Urine Culture - Final Urine, Catheterized Escherichia Coli 10/05/19 13:26 Aerobic Blood Culture - Preliminary Blood - Venous NO GROWTH AFTER 1 DAY Anaerobic Blood Culture - Preliminary NO GROWTH AFTER 1 DAY 10/05/19 13:36 Aerobic Blood Culture - Preliminary Blood - Venous - Lab Draw NO GROWTH AFTER 1 DAY Anaerobic Blood Culture - Preliminary NO GROWTH AFTER 1 DAY Med Orders - Current: Current Medications Acetaminophen (Tylenol) 650 mg PO Q4H PRN PRN Reason: Pain (Mild 1-3)/fever Albuterol (Proventil Neb Soln) 2.5 mg NEB Q4H PRN PRN Reason: Shortness Of Breath/wheezing Donepezil HCl (Aricept) 10 mg PO BEDTIME [facility] Last Admin: 10/06/19 20:56 Dose: Not Given Enoxaparin Sodium (Lovenox) 30 mg SUBCUT Q24H [facility] Last Admin: 10/06/19 16:54 Dose: 30 mg Doxycycline Hyclate 100 mg/ (Sodium Chloride) 100 mls @ 100 mls/hr IV Q12H [facility] Last Admin: 10/07/19 05:25 Dose: 100 mls/hr Meropenem 1 gm/ Sodium (Chloride) 100 mls @ 200 mls/hr IV Q12H [facility] Last Admin: 10/07/19 06:26 Dose: 200 mls/hr Potassium Chloride/Dextrose/Sod Cl (D5 1/2 Ns W/ 20 Meq/L Kcl) 1,000 mls @ 75 mls/hr IV ASDIRECTED [facility] Potassium Chloride 20 meq/Lidocaine HCl 2 ml/ Sodium Chloride 112 mls @ 56 mls/ hr IV Q2H [facility] Stop: 10/07/19 14:29 Influenza Virus Vaccine (Fluzone High-Dose Syringe) 180 mcg IM .ONCE ONE Stop: 10/08/19 10:01 Lactobacillus Rhamnosus (Culturelle) 1 cap PO BID [facility] Last Admin: 10/07/19 08:10 Dose: Not Given Memantine (Namenda) 5 mg PO BID [facility] Last Admin: 10/07/19 08:11 Dose: Not Given Ondansetron HCl (Zofran) 4 mg IV Q4H PRN PRN Reason: Nausea/Vomiting Polyethylene Glycol (Miralax) 17 gm PO DAILY PRN PRN Reason: Constipation Sodium Chloride (Saline Flush) 10 ml FLUSH ASDIRECTED PRN PRN Reason: Keep Vein Open Sotalol HCl (Betapace) 40 mg PO BID [facility] Last Admin: 10/07/19 08:10 Dose: Not Given Discontinued Medications Digoxin (Lanoxin) 250 mcg IVPUSH ONETIME ONE Stop: 10/06/19 14:01 Last Admin: 10/06/19 14:06 Dose: 250 mcg Enoxaparin Sodium (Lovenox) 30 mg SUBCUT DAILY [facility] Last Admin: 10/05/19 17:31 Dose: 30 mg Ceftriaxone Sodium 2 gm/ (Sodium Chloride) 50 mls @ 100 mls/hr IV ONETIME ONE Stop: 10/05/19 13:54 Last Admin: 10/05/19 14:07 Dose: 100 mls/hr Sodium Chloride (Normal Saline) 1,000 mls @ 999 mls/hr IV ASDIRECTED [facility] Last Admin: 10/05/19 14:05 Dose: 999 mls/hr Meropenem 1 gm/ Sodium (Chloride) 100 mls @ 200 mls/hr IV Q12H [facility] Last Admin: 10/05/19 20:47 Dose: Not Given Sodium Chloride (Normal Saline) 1,000 mls @ 125 mls/hr IV ASDIRECTED [facility] Last Admin: 10/05/19 17:25 Dose: 125 mls/hr Meropenem 500 mg/ Sodium (Chloride) 50 mls @ 100 mls/hr IV Q12H [facility] Last Admin: 10/06/19 05:31 Dose: 100 mls/hr Dextrose/Water (Dextrose 5% In Water) 1,000 mls @ 75 mls/hr IV ASDIRECTED [facility] Last Admin: 10/06/19 16:55 Dose: 75 mls/hr Potassium Chloride 20 meq/Lidocaine HCl 2 ml/ Sodium Chloride 112 mls @ 56 mls/ hr IV Q2H [facility] Stop: 10/06/19 13:59 Last Admin: 10/06/19 11:56 Dose: 56 mls/hr Influenza Virus Vaccine (Pharmacy To Dose - Influenza Vaccine) 1 each IM ONETIME ONE Stop: 10/06/19 10:01 Influenza Virus Vaccine (Fluzone High-Dose 2019-20 Syringe) 180 mcg IM .ONCE ONE Stop: 10/05/19 18:01 Last Admin: 10/05/19 20:47 Dose: Not Given Sodium Chloride (Saline Flush) 10 ml FLUSH ASDIRECTED PRN PRN Reason: Keep Vein Open Last Admin: 10/05/19 14:07 Dose: 10 ml Sodium Chloride (Normal Saline) 999 ml IV NOW STA Stop: 10/05/19 13:28 Last Admin: 10/05/19 20:47 Dose: Not Given - Exam Quality Assessment: No: Supplemental Oxygen General: No Acute Distress, Lethargic. No: Alert Lungs: Normal Respiratory Effort, Decreased Breath Sounds (left lung base) Cardiovascular: Regular Rate, Regular Rhythm, Murmurs GI/Abdominal Exam: Soft, No Distention, Tender (mild suprapubic ) Extremities: No Pedal Edema. No: Increased Warmth Skin: Warm, Dry Psy/Mental Status: No: Alert, Agitated - Problem List Review Problem List Initiated/Reviewed/Updated: Yes - My Orders Last 24 Hours: My Active Orders 10/07/19 10:00 D5 1/2 NS w/ 20 mEq/L KCl 1,000 ml IV ASDIRECTED 10/07/19 10:30 Potassium Chloride 20 meq Lidocaine 1% [Xylocaine 1%] 2 ml Sodium Chloride 0.9 % [Normal Saline] 100 ml IV Q2H 10/08/19 05:00 BASIC METABOLIC PANEL,BMP [CHEM] Timed CBC W/O DIFF,HEMOGRAM [HEME] Timed (1) - Plan Plan:: ASSESSMENT AND PLAN LEFT LUNG PNEUMONIA WITH SEPSIS - sepsis has resolved but the patient remains obtunded. She does continue to require supplemental oxygen. Blood cultures negative so far. -Blood cultures pending -Expanded antibiotic coverage; meropenem and doxycycline URINARY TRACT INFECTION - culture grew out Escherichia coli. -Antibiotic therapy as above DECREASED LEVEL OF CONSCIOUSNESS - secondary to underlying dementia and current acute illness. Still obtunded after more than 2 days in the hospital. -Hope for improvement with current management -Discuss situation with family when they are available HYPERNATREMIA - improved with D5W infusion. -Change IV fluids to D5 half-normal saline with potassium -Labs in the morning PALLIATIVE CARE - discussed with , he does not want aggressive interventions such as intubation or CPR MAINTENANCE ISSUES -DVT prophylaxis; Lovenox 30 mg subcutaneous daily -GI prophylaxis; not indicated -Esquivel catheter; not indicated -Nutrition; mechanical soft diet (not able to take anything by mouth because of obtundation) DISPOSITION - anticipate discharge to home with her versus long term if she survives the hospital stay. Bill Inman M.D.
[2019-10-07] MEDS: Potassium Chloride 20 MEQ, Lidocaine 1% 2 ML in Sodium Chloride 0.9% 100 ML IV SCH ×2 (10:44→12:49)
[2019-10-07] MEDS: D5 1/2 NS w/ 20 mEq/L KCl 1,000 ML IV SCH (10:44)
[2019-10-07] MEDS: Enoxaparin 30 MG/0.3 ML Syringe SUBCUT SCH (17:08)
[2019-10-07] MEDS: Donepezil 10 MG Tab PO SCH (22:34)
[2019-10-08] MEDS: D5 1/2 NS w/ 20 mEq/L KCl 1,000 ML IV SCH ×2 (01:33→17:29)
[2019-10-08] MEDS: Doxycycline 100 MG in Sodium Chloride 0.9% 100 ML IV SCH (04:29)
[2019-10-08] MEDS: Meropenem 1 GM in Sodium Chloride 0.9% 100 ML IV SCH (05:36)
[2019-10-08] MEDS: Lactobacillus Rhamnosus GG (Probiotic) Cap PO SCH (09:33)
[2019-10-08] MEDS: Memantine 10 MG Tab PO SCH (09:33)
[2019-10-08] MEDS: Sotalol 80 MG Tab PO SCH (09:33)
[2019-10-08] MEDS ORDERED: Acetaminophen 650 MG Supp RECTAL PRN (11:45)
--- NOTE | 2019-10-08 11:46 | PCM.PN ---
- General Info Date of Service: 10/08/19 Subjective Update: There were no acute events overnight. The patient has remained essentially obtunded and does not interact. She moans a little bit but has otherwise not been responsive. She has not had anything to eat and has not been able or tried to drink anything. Vital signs have been stable. Laboratory studies are unremarkable today. I did talk to her Don again today. He is leaning towards hospice but would like to continue the current level of care until her son is able to make it appear to see her before the transition to hospice occurs. He will hopefully be arriving in the next day or 2. Functional Status: Reports: Other (lethargic) - Review of Systems General: Denies: Fever - Patient Data Vitals - Most Recent: Last Vital Signs Temp 36.1 C 10/08/19 11:00 Pulse 72 10/08/19 11:00 Resp 18 10/08/19 11:00 BP 133/69 10/08/19 11:00 Pulse Ox 93 L 10/08/19 11:00 Weight - Most Recent: 37 kg I&O - Last 24 Hours: Intake & Output 10/07/19 10/08/19 10/08/19 22:59 06:59 14:59 Intake Total 200 940 0 Balance 200 940 0 Lab Results Last 24 Hours: Laboratory Results - last 24 hr 10/08/19 10/08/19 Range/Units 06:01 06:01 WBC 9.0 (4.5-11.0) K/uL RBC 3.70 (3.30-5.50) M/uL Hgb 11.5 L (12.0-15.0) g/dL Hct 36.3 (36.0-48.0) % MCV 98 (80-98) fL MCH 31 (27-31) pg MCHC 32 (32-36) % Plt Count 177 (150-400) K/uL Sodium 140 (140-148) mmol/L Potassium 3.7 (3.6-5.2) mmol/L Chloride 105 (100-108) mmol/L Carbon Dioxide 28 (21-32) mmol/L Anion Gap 6.6 (5.0-14.0) mmol/L BUN 17 (7-18) mg/dL Creatinine 0.7 (0.6-1.0) mg/dL Est Cr Clr Drug Dosing 34.94 mL/min Estimated GFR (MDRD) > 60 (>60) Glucose 106 (74-106) mg/dL Calcium 8.2 L (8.5-10.1) mg/dL Daniel Results Last 24 Hours: Microbiology 10/05/19 13:36 Aerobic Blood Culture - Preliminary Blood - Venous - Lab Draw NO GROWTH AFTER 2 DAYS Anaerobic Blood Culture - Preliminary NO GROWTH AFTER 2 DAYS 10/05/19 13:26 Aerobic Blood Culture - Preliminary Blood - Venous NO GROWTH AFTER 2 DAYS Anaerobic Blood Culture - Preliminary NO GROWTH AFTER 2 DAYS 10/05/19 13:29 Urine Culture - Final Urine, Catheterized Escherichia Coli Med Orders - Current: Current Medications Acetaminophen (Tylenol) 650 mg PO Q4H PRN PRN Reason: Pain (Mild 1-3)/fever Albuterol (Proventil Neb Soln) 2.5 mg NEB Q4H PRN PRN Reason: Shortness Of Breath/wheezing Donepezil HCl (Aricept) 10 mg PO BEDTIME [facility] Last Admin: 10/07/19 22:34 Dose: Not Given Enoxaparin Sodium (Lovenox) 30 mg SUBCUT Q24H [facility] Last Admin: 10/07/19 17:08 Dose: 30 mg Doxycycline Hyclate 100 mg/ (Sodium Chloride) 100 mls @ 100 mls/hr IV Q12H [facility] Last Admin: 10/08/19 04:29 Dose: 100 mls/hr Meropenem 1 gm/ Sodium (Chloride) 100 mls @ 200 mls/hr IV Q12H [facility] Last Admin: 10/08/19 05:36 Dose: 200 mls/hr Potassium Chloride/Dextrose/Sod Cl (D5 1/2 Ns W/ 20 Meq/L Kcl) 1,000 mls @ 75 mls/hr IV ASDIRECTED [facility] Last Admin: 10/08/19 01:33 Dose: 75 mls/hr Lactobacillus Rhamnosus (Culturelle) 1 cap PO BID [facility] Last Admin: 10/08/19 09:33 Dose: Not Given Memantine (Namenda) 5 mg PO BID [facility] Last Admin: 10/08/19 09:33 Dose: Not Given Ondansetron HCl (Zofran) 4 mg IV Q4H PRN PRN Reason: Nausea/Vomiting Polyethylene Glycol (Miralax) 17 gm PO DAILY PRN PRN Reason: Constipation Sodium Chloride (Saline Flush) 10 ml FLUSH ASDIRECTED PRN PRN Reason: Keep Vein Open Sotalol HCl (Betapace) 40 mg PO BID [facility] Last Admin: 10/08/19 09:33 Dose: Not Given Discontinued Medications Digoxin (Lanoxin) 250 mcg IVPUSH ONETIME ONE Stop: 10/06/19 14:01 Last Admin: 10/06/19 14:06 Dose: 250 mcg Enoxaparin Sodium (Lovenox) 30 mg SUBCUT DAILY [facility] Last Admin: 10/05/19 17:31 Dose: 30 mg Ceftriaxone Sodium 2 gm/ (Sodium Chloride) 50 mls @ 100 mls/hr IV ONETIME ONE Stop: 10/05/19 13:54 Last Admin: 10/05/19 14:07 Dose: 100 mls/hr Sodium Chloride (Normal Saline) 1,000 mls @ 999 mls/hr IV ASDIRECTED [facility] Last Admin: 10/05/19 14:05 Dose: 999 mls/hr Meropenem 1 gm/ Sodium (Chloride) 100 mls @ 200 mls/hr IV Q12H [facility] Last Admin: 10/05/19 20:47 Dose: Not Given Sodium Chloride (Normal Saline) 1,000 mls @ 125 mls/hr IV ASDIRECTED [facility] Last Admin: 10/05/19 17:25 Dose: 125 mls/hr Meropenem 500 mg/ Sodium (Chloride) 50 mls @ 100 mls/hr IV Q12H [facility] Last Admin: 10/06/19 05:31 Dose: 100 mls/hr Dextrose/Water (Dextrose 5% In Water) 1,000 mls @ 75 mls/hr IV ASDIRECTED [facility] Last Admin: 10/06/19 16:55 Dose: 75 mls/hr Potassium Chloride 20 meq/Lidocaine HCl 2 ml/ Sodium Chloride 112 mls @ 56 mls/ hr IV Q2H [facility] Stop: 10/06/19 13:59 Last Admin: 10/06/19 11:56 Dose: 56 mls/hr Potassium Chloride 20 meq/Lidocaine HCl 2 ml/ Sodium Chloride 112 mls @ 56 mls/ hr IV Q2H [facility] Stop: 10/07/19 14:29 Last Admin: 10/07/19 12:49 Dose: 56 mls/hr Influenza Virus Vaccine (Pharmacy To Dose - Influenza Vaccine) 1 each IM ONETIME ONE Stop: 10/06/19 10:01 Influenza Virus Vaccine (Fluzone High-Dose Syringe) 180 mcg IM .ONCE ONE Stop: 10/05/19 18:01 Last Admin: 10/05/19 20:47 Dose: Not Given Influenza Virus Vaccine (Fluzone High-Dose Syringe) 180 mcg IM .ONCE ONE Stop: 10/08/19 10:01 Sodium Chloride (Saline Flush) 10 ml FLUSH ASDIRECTED PRN PRN Reason: Keep Vein Open Last Admin: 10/05/19 14:07 Dose: 10 ml Sodium Chloride (Normal Saline) 999 ml IV NOW STA Stop: 10/05/19 13:28 Last Admin: 10/05/19 20:47 Dose: Not Given - Exam Quality Assessment: No: Supplemental Oxygen General: No Acute Distress, Lethargic. No: Alert Lungs: Normal Respiratory Effort GI/Abdominal Exam: Soft, No Distention Extremities: No Pedal Edema Psy/Mental Status: No: Alert, Agitated - Problem List Review Problem List Initiated/Reviewed/Updated: Yes - My Orders Last 24 Hours: My Active Orders 10/08/19 11:45 Acetaminophen [Tylenol] 650 mg RECTAL Q4H PRN 10/08/19 14:00 cefTRIAXone [Rocephin] 1 gm Sodium Chloride 0.9% [Normal Saline] 50 ml IV Q24H - Plan Plan:: ASSESSMENT AND PLAN LEFT LUNG PNEUMONIA WITH SEPSIS - sepsis has resolved but the patient remains obtunded. Not hypoxic at this time but remains obtunded. -Follow-up cultures which are negative so far -Change antibiotics to ceftriaxone URINARY TRACT INFECTION - culture grew out Escherichia coli. -Antibiotic therapy as above DECREASED LEVEL OF CONSCIOUSNESS - secondary to underlying dementia and current acute illness. She remains obtunded and does not show any signs of improvement at this point. I believe the patient has entered the dying process. Family is considering a transition to hospice but would like to continue the current level of care until her son can arrive. -Hope for improvement with current management -Anticipate transition to hospice, likely at home, in the next day or 2 HYPERNATREMIA - improved with D5W infusion. -Continue D5 half-normal saline with potassium PALLIATIVE CARE - discussed with , he does not want aggressive interventions such as intubation or CPR. Current level of care will be continued but cares will not be escalated if patient declines. MAINTENANCE ISSUES -DVT prophylaxis; Lovenox 30 mg subcutaneous daily -GI prophylaxis; not indicated -Esquivel catheter; not indicated -Nutrition; mechanical soft diet (not able to take anything by mouth because of obtundation) DISPOSITION - anticipate discharge to home with hospice with her when her son arrives from [place] Bill Inman M.D.
[2019-10-08] MEDS: cefTRIAXone 1 GM in Sodium Chloride 0.9% 50 ML IV SCH (15:15)
[2019-10-08] MEDS: Enoxaparin 30 MG/0.3 ML Syringe SUBCUT SCH (18:18)
[2019-10-09] MEDS: D5 1/2 NS w/ 20 mEq/L KCl 1,000 ML IV SCH ×2 (07:04→21:14)
--- NOTE | 2019-10-09 10:11 | PCM.PN ---
- General Info Date of Service: 10/09/19 Subjective Update: There were no acute events overnight. Patient remains very lethargic though she is able to open her eyes slightly today. She has not been able to interact , eat or drink. Vital signs have remained stable. She has not had any fevers. She has not required supplemental oxygen. Family has not been available for discussion as of the time of this dictation. Functional Status: Reports: Other (lethargic, not interactive ) - Review of Systems General: Denies: Fever - Patient Data Vitals - Most Recent: Last Vital Signs Temp 36.3 C 10/09/19 07:45 Pulse 72 10/09/19 07:45 Resp 18 10/09/19 07:45 BP 109/60 10/09/19 07:45 Pulse Ox 95 10/09/19 07:45 Weight - Most Recent: 37 kg I&O - Last 24 Hours: Intake & Output 10/08/19 10/09/19 10/09/19 22:59 06:59 14:59 Intake Total 777 889 Balance 777 889 Daniel Results Last 24 Hours: Microbiology 10/05/19 13:36 Aerobic Blood Culture - Preliminary Blood - Venous - Lab Draw NO GROWTH AFTER 3 DAYS Anaerobic Blood Culture - Preliminary NO GROWTH AFTER 3 DAYS 10/05/19 13:26 Aerobic Blood Culture - Preliminary Blood - Venous NO GROWTH AFTER 3 DAYS Anaerobic Blood Culture - Preliminary NO GROWTH AFTER 3 DAYS Med Orders - Current: Current Medications Acetaminophen (Tylenol) 650 mg PO Q4H PRN PRN Reason: Pain (Mild 1-3)/fever Acetaminophen (Tylenol) 650 mg RECTAL Q4H PRN PRN Reason: Pain/Fever Albuterol (Proventil Neb Soln) 2.5 mg NEB Q4H PRN PRN Reason: Shortness Of Breath/wheezing Enoxaparin Sodium (Lovenox) 30 mg SUBCUT Q24H [facility] Last Admin: 10/08/19 18:18 Dose: 30 mg Potassium Chloride/Dextrose/Sod Cl (D5 1/2 Ns W/ 20 Meq/L Kcl) 1,000 mls @ 75 mls/hr IV ASDIRECTED [facility] Last Admin: 10/09/19 07:04 Dose: 75 mls/hr Ceftriaxone Sodium 1 gm/ (Sodium Chloride) 50 mls @ 100 mls/hr IV Q24H [facility] Last Admin: 10/08/19 15:15 Dose: 100 mls/hr Ondansetron HCl (Zofran) 4 mg IV Q4H PRN PRN Reason: Nausea/Vomiting Polyethylene Glycol (Miralax) 17 gm PO DAILY PRN PRN Reason: Constipation Sodium Chloride (Saline Flush) 10 ml FLUSH ASDIRECTED PRN PRN Reason: Keep Vein Open Discontinued Medications Digoxin (Lanoxin) 250 mcg IVPUSH ONETIME ONE Stop: 10/06/19 14:01 Last Admin: 10/06/19 14:06 Dose: 250 mcg Donepezil HCl (Aricept) 10 mg PO BEDTIME [facility] Last Admin: 10/07/19 22:34 Dose: Not Given Enoxaparin Sodium (Lovenox) 30 mg SUBCUT DAILY [facility] Last Admin: 10/05/19 17:31 Dose: 30 mg Ceftriaxone Sodium 2 gm/ (Sodium Chloride) 50 mls @ 100 mls/hr IV ONETIME ONE Stop: 10/05/19 13:54 Last Admin: 10/05/19 14:07 Dose: 100 mls/hr Sodium Chloride (Normal Saline) 1,000 mls @ 999 mls/hr IV ASDIRECTED [facility] Last Admin: 10/05/19 14:05 Dose: 999 mls/hr Doxycycline Hyclate 100 mg/ (Sodium Chloride) 100 mls @ 100 mls/hr IV Q12H [facility] Last Admin: 10/08/19 04:29 Dose: 100 mls/hr Meropenem 1 gm/ Sodium (Chloride) 100 mls @ 200 mls/hr IV Q12H [facility] Last Admin: 10/05/19 20:47 Dose: Not Given Sodium Chloride (Normal Saline) 1,000 mls @ 125 mls/hr IV ASDIRECTED [facility] Last Admin: 10/05/19 17:25 Dose: 125 mls/hr Meropenem 500 mg/ Sodium (Chloride) 50 mls @ 100 mls/hr IV Q12H [facility] Last Admin: 10/06/19 05:31 Dose: 100 mls/hr Dextrose/Water (Dextrose 5% In Water) 1,000 mls @ 75 mls/hr IV ASDIRECTED [facility] Last Admin: 10/06/19 16:55 Dose: 75 mls/hr Meropenem 1 gm/ Sodium (Chloride) 100 mls @ 200 mls/hr IV Q12H [facility] Last Admin: 10/08/19 05:36 Dose: 200 mls/hr Potassium Chloride 20 meq/Lidocaine HCl 2 ml/ Sodium Chloride 112 mls @ 56 mls/ hr IV Q2H [facility] Stop: 10/06/19 13:59 Last Admin: 10/06/19 11:56 Dose: 56 mls/hr Potassium Chloride 20 meq/Lidocaine HCl 2 ml/ Sodium Chloride 112 mls @ 56 mls/ hr IV Q2H [facility] Stop: 10/07/19 14:29 Last Admin: 10/07/19 12:49 Dose: 56 mls/hr Influenza Virus Vaccine (Pharmacy To Dose - Influenza Vaccine) 1 each IM ONETIME ONE Stop: 10/06/19 10:01 Influenza Virus Vaccine (Fluzone High-Dose 2018- Syringe) 180 mcg IM .ONCE ONE Stop: 10/05/19 18:01 Last Admin: 10/05/19 20:47 Dose: Not Given Influenza Virus Vaccine (Fluzone High-Dose 2018- Syringe) 180 mcg IM .ONCE ONE Stop: 10/08/19 10:01 Last Admin: 10/08/19 13:39 Dose: Not Given Lactobacillus Rhamnosus (Culturelle) 1 cap PO BID [facility] Last Admin: 10/08/19 09:33 Dose: Not Given Memantine (Namenda) 5 mg PO BID [facility] Last Admin: 10/08/19 09:33 Dose: Not Given Sodium Chloride (Saline Flush) 10 ml FLUSH ASDIRECTED PRN PRN Reason: Keep Vein Open Last Admin: 10/05/19 14:07 Dose: 10 ml Sodium Chloride (Normal Saline) 999 ml IV NOW STA Stop: 10/05/19 13:28 Last Admin: 10/05/19 20:47 Dose: Not Given Sotalol HCl (Betapace) 40 mg PO BID [facility] Last Admin: 10/08/19 09:33 Dose: Not Given - Exam Quality Assessment: No: Supplemental Oxygen General: No Acute Distress, Lethargic. No: Alert Neck: Other (dry muc membraones) Lungs: Normal Respiratory Effort GI/Abdominal Exam: Soft, No Distention Extremities: No Pedal Edema Psy/Mental Status: No: Alert, Agitated - Problem List Review Problem List Initiated/Reviewed/Updated: Yes - My Orders Last 24 Hours: My Active Orders 10/08/19 11:45 Acetaminophen [Tylenol] 650 mg RECTAL Q4H PRN 10/08/19 14:00 cefTRIAXone [Rocephin] 1 gm Sodium Chloride 0.9% [Normal Saline] 50 ml IV Q24H - Plan Plan:: ASSESSMENT AND PLAN LEFT LUNG PNEUMONIA WITH SEPSIS - sepsis has resolved but the patient remains obtunded. Not hypoxic at this time but remains very lethargic. -Continue ceftriaxone URINARY TRACT INFECTION - culture grew out Escherichia coli. -Antibiotic therapy as above DECREASED LEVEL OF CONSCIOUSNESS - secondary to underlying dementia and current acute illness. She remains extremely lethargic and has not been able to take anything by mouth since hospital admission. She is slightly more alert today but still very compromised. -Hope for improvement with current management -Anticipate transition to hospice, likely at home, in the next day or 2 HYPERNATREMIA - improved with D5W infusion. -Continue D5 half-normal saline with potassium PALLIATIVE CARE - discussed with , he does not want aggressive interventions such as intubation or CPR. Current level of care will be continued but cares will not be escalated if patient declines. Still waiting for son to arrive to help with decision making. MAINTENANCE ISSUES -DVT prophylaxis; Lovenox 30 mg subcutaneous daily -GI prophylaxis; not indicated -Esquivel catheter; not indicated -Nutrition; mechanical soft diet (not able to take anything by mouth because of obtundation) DISPOSITION - anticipate discharge to home with hospice with her when her son arrives from [place] Bill Inman M.D.
[2019-10-09] MEDS: cefTRIAXone 1 GM in Sodium Chloride 0.9% 50 ML IV SCH (14:40)
--- NOTE | 2019-10-10 10:05 | PCM.PN ---
- General Info Date of Service: 10/10/19 Subjective Update: There were no acute events overnight. Patient did have some difficulty with secretions yesterday afternoon and required suctioning on several occasions. Secretions do not seem to be as evident today. She does have her eyes open and looks around some but is not who communicate. She has been sleeping most of the time for the past 24 hours. She has not able to take anything by mouth. Vital signs have been stable. I did discuss the situation with her Don again today. He feels that a transition to hospice would be the best approach. Family will be arriving to provide additional assistance tomorrow. Functional Status: Reports: Other (lethargic ) - Review of Systems General: Denies: Fever - Patient Data Vitals - Most Recent: Last Vital Signs Temp 35.6 C 10/10/19 07:28 Pulse 74 10/10/19 07:28 Resp 16 10/10/19 07:28 BP 109/59 L 10/10/19 07:28 Pulse Ox 95 10/10/19 07:28 Weight - Most Recent: 37 kg I&O - Last 24 Hours: Intake & Output 10/09/19 10/10/19 10/10/19 22:59 06:59 14:59 Intake Total 864 900 Balance 864 900 Daniel Results Last 24 Hours: Microbiology 10/05/19 13:26 Aerobic Blood Culture - Preliminary Blood - Venous NO GROWTH AFTER 4 DAYS Anaerobic Blood Culture - Preliminary NO GROWTH AFTER 4 DAYS 10/05/19 13:36 Aerobic Blood Culture - Preliminary Blood - Venous - Lab Draw NO GROWTH AFTER 4 DAYS Anaerobic Blood Culture - Preliminary NO GROWTH AFTER 4 DAYS Med Orders - Current: Current Medications Acetaminophen (Tylenol) 650 mg PO Q4H PRN PRN Reason: Pain (Mild 1-3)/fever Acetaminophen (Tylenol) 650 mg RECTAL Q4H PRN PRN Reason: Pain/Fever Albuterol (Proventil Neb Soln) 2.5 mg NEB Q4H PRN PRN Reason: Shortness Of Breath/wheezing Potassium Chloride/Dextrose/Sod Cl (D5 1/2 Ns W/ 20 Meq/L Kcl) 1,000 mls @ 75 mls/hr IV ASDIRECTED [facility] Last Admin: 10/09/19 21:14 Dose: 75 mls/hr Ceftriaxone Sodium 1 gm/ (Sodium Chloride) 50 mls @ 100 mls/hr IV Q24H [facility] Last Admin: 10/09/19 14:40 Dose: 100 mls/hr Ondansetron HCl (Zofran) 4 mg IV Q4H PRN PRN Reason: Nausea/Vomiting Polyethylene Glycol (Miralax) 17 gm PO DAILY PRN PRN Reason: Constipation Sodium Chloride (Saline Flush) 10 ml FLUSH ASDIRECTED PRN PRN Reason: Keep Vein Open Discontinued Medications Digoxin (Lanoxin) 250 mcg IVPUSH ONETIME ONE Stop: 10/06/19 14:01 Last Admin: 10/06/19 14:06 Dose: 250 mcg Donepezil HCl (Aricept) 10 mg PO BEDTIME [facility] Last Admin: 10/07/19 22:34 Dose: Not Given Enoxaparin Sodium (Lovenox) 30 mg SUBCUT DAILY [facility] Last Admin: 10/05/19 17:31 Dose: 30 mg Enoxaparin Sodium (Lovenox) 30 mg SUBCUT Q24H [facility] Last Admin: 10/08/19 18:18 Dose: 30 mg Ceftriaxone Sodium 2 gm/ (Sodium Chloride) 50 mls @ 100 mls/hr IV ONETIME ONE Stop: 10/05/19 13:54 Last Admin: 10/05/19 14:07 Dose: 100 mls/hr Sodium Chloride (Normal Saline) 1,000 mls @ 999 mls/hr IV ASDIRECTED [facility] Last Admin: 10/05/19 14:05 Dose: 999 mls/hr Doxycycline Hyclate 100 mg/ (Sodium Chloride) 100 mls @ 100 mls/hr IV Q12H [facility] Last Admin: 10/08/19 04:29 Dose: 100 mls/hr Meropenem 1 gm/ Sodium (Chloride) 100 mls @ 200 mls/hr IV Q12H [facility] Last Admin: 10/05/19 20:47 Dose: Not Given Sodium Chloride (Normal Saline) 1,000 mls @ 125 mls/hr IV ASDIRECTED [facility] Last Admin: 10/05/19 17:25 Dose: 125 mls/hr Meropenem 500 mg/ Sodium (Chloride) 50 mls @ 100 mls/hr IV Q12H [facility] Last Admin: 10/06/19 05:31 Dose: 100 mls/hr Dextrose/Water (Dextrose 5% In Water) 1,000 mls @ 75 mls/hr IV ASDIRECTED [facility] Last Admin: 10/06/19 16:55 Dose: 75 mls/hr Meropenem 1 gm/ Sodium (Chloride) 100 mls @ 200 mls/hr IV Q12H [facility] Last Admin: 10/08/19 05:36 Dose: 200 mls/hr Potassium Chloride 20 meq/Lidocaine HCl 2 ml/ Sodium Chloride 112 mls @ 56 mls/ hr IV Q2H [facility] Stop: 10/06/19 13:59 Last Admin: 10/06/19 11:56 Dose: 56 mls/hr Potassium Chloride 20 meq/Lidocaine HCl 2 ml/ Sodium Chloride 112 mls @ 56 mls/ hr IV Q2H [facility] Stop: 10/07/19 14:29 Last Admin: 10/07/19 12:49 Dose: 56 mls/hr Influenza Virus Vaccine (Pharmacy To Dose - Influenza Vaccine) 1 each IM ONETIME ONE Stop: 10/06/19 10:01 Influenza Virus Vaccine (Fluzone High-Dose 2018-20 Syringe) 180 mcg IM .ONCE ONE Stop: 10/05/19 18:01 Last Admin: 10/05/19 20:47 Dose: Not Given Influenza Virus Vaccine (Fluzone High-Dose 2018-20 Syringe) 180 mcg IM .ONCE ONE Stop: 10/08/19 10:01 Last Admin: 10/08/19 13:39 Dose: Not Given Lactobacillus Rhamnosus (Culturelle) 1 cap PO BID [facility] Last Admin: 10/08/19 09:33 Dose: Not Given Memantine (Namenda) 5 mg PO BID [facility] Last Admin: 10/08/19 09:33 Dose: Not Given Sodium Chloride (Saline Flush) 10 ml FLUSH ASDIRECTED PRN PRN Reason: Keep Vein Open Last Admin: 10/05/19 14:07 Dose: 10 ml Sodium Chloride (Normal Saline) 999 ml IV NOW STA Stop: 10/05/19 13:28 Last Admin: 10/05/19 20:47 Dose: Not Given Sotalol HCl (Betapace) 40 mg PO BID [facility] Last Admin: 10/08/19 09:33 Dose: Not Given - Exam Quality Assessment: No: Supplemental Oxygen General: Alert, No Acute Distress, Lethargic. No: Cooperative Lungs: Clear to Auscultation, Normal Respiratory Effort, Decreased Breath Sounds (both lower lung calderon) Cardiovascular: Regular Rate, Regular Rhythm GI/Abdominal Exam: Soft, No Distention Extremities: No Pedal Edema Psy/Mental Status: Alert. No: Agitated - Problem List Review Problem List Initiated/Reviewed/Updated: Yes - Plan Plan:: ASSESSMENT AND PLAN LEFT LUNG PNEUMONIA WITH SEPSIS - sepsis has resolved but the patient remains obtunded. Not hypoxic at this time but remains very lethargic. -Discontinue antibiotics URINARY TRACT INFECTION - culture grew out Escherichia coli. -Discontinue antibiotics DECREASED LEVEL OF CONSCIOUSNESS - secondary to underlying dementia and current acute illness. She remains extremely lethargic and has not been able to take anything by mouth since hospital admission. Planning transition to comfort cares with ongoing lethargy, poor functional status and extremely frail condition even prior to onset of the recent infections. -Transitioning to comfort cares only -Anticipate transition to hospice at home tomorrow HYPERNATREMIA - improved with D5W infusion. -Discontinue peripheral IV PALLIATIVE CARE - discussed with , he does not want aggressive interventions such as intubation or CPR. Transitioning to comfort cares only at this point. MAINTENANCE ISSUES -DVT prophylaxis; not indicated -GI prophylaxis; not indicated -Esquivel catheter; not indicated -Nutrition; mechanical soft diet (not able to take anything by mouth because of obtundation) DISPOSITION - anticipate discharge to home with hospice with her and son tomorrow Bill Inman M.D.
--- NOTE | 2019-10-10 12:30 | PCM.PN ---
- General Info Date of Service: 10/10/19 Functional Status: Reports: Other (leth) - Patient Data Vitals - Most Recent: Last Vital Signs Temp 35.6 C 10/10/19 07:28 Pulse 74 10/10/19 07:28 Resp 16 10/10/19 07:28 BP 109/59 L 10/10/19 07:28 Pulse Ox 95 10/10/19 07:28 Weight - Most Recent: 37 kg I&O - Last 24 Hours: Intake & Output 10/09/19 10/10/19 10/10/19 22:59 06:59 14:59 Intake Total 864 900 Balance 864 900 Daniel Results Last 24 Hours: Microbiology 10/05/19 13:26 Aerobic Blood Culture - Preliminary Blood - Venous NO GROWTH AFTER 4 DAYS Anaerobic Blood Culture - Preliminary NO GROWTH AFTER 4 DAYS 10/05/19 13:36 Aerobic Blood Culture - Preliminary Blood - Venous - Lab Draw NO GROWTH AFTER 4 DAYS Anaerobic Blood Culture - Preliminary NO GROWTH AFTER 4 DAYS Med Orders - Current: Current Medications Acetaminophen (Tylenol) 650 mg PO Q4H PRN PRN Reason: Pain (Mild 1-3)/fever Acetaminophen (Tylenol) 650 mg RECTAL Q4H PRN PRN Reason: Pain/Fever Potassium Chloride/Dextrose/Sod Cl (D5 1/2 Ns W/ 20 Meq/L Kcl) 1,000 mls @ 75 mls/hr IV ASDIRECTED [facility] Last Admin: 10/09/19 21:14 Dose: 75 mls/hr Ceftriaxone Sodium 1 gm/ (Sodium Chloride) 50 mls @ 100 mls/hr IV Q24H [facility] Last Admin: 10/09/19 14:40 Dose: 100 mls/hr Ondansetron HCl (Zofran) 4 mg IV Q4H PRN PRN Reason: Nausea/Vomiting Polyethylene Glycol (Miralax) 17 gm PO DAILY PRN PRN Reason: Constipation Sodium Chloride (Saline Flush) 10 ml FLUSH ASDIRECTED PRN PRN Reason: Keep Vein Open Discontinued Medications Albuterol (Proventil Neb Soln) 2.5 mg NEB Q4H PRN PRN Reason: Shortness Of Breath/wheezing Digoxin (Lanoxin) 250 mcg IVPUSH ONETIME ONE Stop: 10/06/19 14:01 Last Admin: 10/06/19 14:06 Dose: 250 mcg Donepezil HCl (Aricept) 10 mg PO BEDTIME [facility] Last Admin: 10/07/19 22:34 Dose: Not Given Enoxaparin Sodium (Lovenox) 30 mg SUBCUT DAILY [facility] Last Admin: 10/05/19 17:31 Dose: 30 mg Enoxaparin Sodium (Lovenox) 30 mg SUBCUT Q24H [facility] Last Admin: 10/08/19 18:18 Dose: 30 mg Ceftriaxone Sodium 2 gm/ (Sodium Chloride) 50 mls @ 100 mls/hr IV ONETIME ONE Stop: 10/05/19 13:54 Last Admin: 10/05/19 14:07 Dose: 100 mls/hr Sodium Chloride (Normal Saline) 1,000 mls @ 999 mls/hr IV ASDIRECTED [facility] Last Admin: 10/05/19 14:05 Dose: 999 mls/hr Doxycycline Hyclate 100 mg/ (Sodium Chloride) 100 mls @ 100 mls/hr IV Q12H [facility] Last Admin: 10/08/19 04:29 Dose: 100 mls/hr Meropenem 1 gm/ Sodium (Chloride) 100 mls @ 200 mls/hr IV Q12H [facility] Last Admin: 10/05/19 20:47 Dose: Not Given Sodium Chloride (Normal Saline) 1,000 mls @ 125 mls/hr IV ASDIRECTED [facility] Last Admin: 10/05/19 17:25 Dose: 125 mls/hr Meropenem 500 mg/ Sodium (Chloride) 50 mls @ 100 mls/hr IV Q12H [facility] Last Admin: 10/06/19 05:31 Dose: 100 mls/hr Dextrose/Water (Dextrose 5% In Water) 1,000 mls @ 75 mls/hr IV ASDIRECTED [facility] Last Admin: 10/06/19 16:55 Dose: 75 mls/hr Meropenem 1 gm/ Sodium (Chloride) 100 mls @ 200 mls/hr IV Q12H [facility] Last Admin: 10/08/19 05:36 Dose: 200 mls/hr Potassium Chloride 20 meq/Lidocaine HCl 2 ml/ Sodium Chloride 112 mls @ 56 mls/ hr IV Q2H [facility] Stop: 10/06/19 13:59 Last Admin: 10/06/19 11:56 Dose: 56 mls/hr Potassium Chloride 20 meq/Lidocaine HCl 2 ml/ Sodium Chloride 112 mls @ 56 mls/ hr IV Q2H [facility] Stop: 10/07/19 14:29 Last Admin: 10/07/19 12:49 Dose: 56 mls/hr Influenza Virus Vaccine (Pharmacy To Dose - Influenza Vaccine) 1 each IM ONETIME ONE Stop: 10/06/19 10:01 Influenza Virus Vaccine (Fluzone High-Dose 2018- Syringe) 180 mcg IM .ONCE ONE Stop: 10/05/19 18:01 Last Admin: 10/05/19 20:47 Dose: Not Given Influenza Virus Vaccine (Fluzone High-Dose Syringe) 180 mcg IM .ONCE ONE Stop: 10/08/19 10:01 Last Admin: 10/08/19 13:39 Dose: Not Given Lactobacillus Rhamnosus (Culturelle) 1 cap PO BID [facility] Last Admin: 10/08/19 09:33 Dose: Not Given Memantine (Namenda) 5 mg PO BID [facility] Last Admin: 10/08/19 09:33 Dose: Not Given Sodium Chloride (Saline Flush) 10 ml FLUSH ASDIRECTED PRN PRN Reason: Keep Vein Open Last Admin: 10/05/19 14:07 Dose: 10 ml Sodium Chloride (Normal Saline) 999 ml IV NOW STA Stop: 10/05/19 13:28 Last Admin: 10/05/19 20:47 Dose: Not Given Sotalol HCl (Betapace) 40 mg PO BID [facility] Last Admin: 10/08/19 09:33 Dose: Not Given - My Orders Last 24 Hours: My Active Orders 10/10/19 12:28 Peripheral IV Discontinue [OM.PC] Routine - Plan Plan:: ASSESSMENT AND PLAN LEFT LUNG PNEUMONIA WITH SEPSIS - sepsis has resolved but the patient remains obtunded. Not hypoxic at this time but remains very lethargic. -Continue ceftriaxone URINARY TRACT INFECTION - culture grew out Escherichia coli. -Antibiotic therapy as above DECREASED LEVEL OF CONSCIOUSNESS - secondary to underlying dementia and current acute illness. She remains extremely lethargic and has not been able to take anything by mouth since hospital admission. She is slightly more alert today but still very compromised. -Hope for improvement with current management -Anticipate transition to hospice, likely at home, in the next day or 2 HYPERNATREMIA - improved with D5W infusion. -Continue D5 half-normal saline with potassium PALLIATIVE CARE - discussed with , he does not want aggressive interventions such as intubation or CPR. Current level of care will be continued but cares will not be escalated if patient declines. Still waiting for son to arrive to help with decision making. MAINTENANCE ISSUES -DVT prophylaxis; Lovenox 30 mg subcutaneous daily -GI prophylaxis; not indicated -Esquivel catheter; not indicated -Nutrition; mechanical soft diet (not able to take anything by mouth because of obtundation) DISPOSITION - anticipate discharge to home with hospice with her when her son arrives from [place] Bill Inman M.D.
[2019-10-11] MEDS: Morphine 10 MG/0.5 ML Oral Syringe BUCCAL PRN ×3 (00:45→04:23)
--- NOTE | 2019-10-11 10:01 | PCM.DCSUM1 ---
Discharge Summary - Hospital Course Brief History: 84-year-old female with Alzheimer's dementia without behavioral disturbance who presented with weakness, confusion and lethargy. She was admitted for management of left lower lung pneumonia, urinary tract infection, sepsis, dehydration and acute kidney injury. Diagnosis: Stroke: No - Discharge Data Discharge Date: 10/11/19 Discharge Disposition: DC/Tfer to Hospice - Home 50 Condition: Stable - Referral to Home Health Primary Care Physician: PCP None - Discharge Diagnosis/Problem(s) (1) Acute cystitis with positive culture SNOMED Code(s): 629751219 ICD Code: N30.00 - ACUTE CYSTITIS WITHOUT HEMATURIA Status: Acute Current Visit: Yes (2) Sepsis SNOMED Code(s): 62889023 ICD Code: A41.9 - SEPSIS, UNSPECIFIED ORGANISM Status: Acute Current Visit: Yes Qualifiers: Sepsis type: Escherichia coli Sepsis acute organ dysfunction status: with acute organ dysfunction Severe sepsis acute organ dysfunction type: acute renal failure Acute renal failure type: with acute tubular necrosis Severe sepsis shock status: without septic shock Qualified Code(s): A41.51 - Sepsis due to Escherichia coli [E. coli]; R65.20 - Severe sepsis without septic shock; N17.0 - Acute kidney failure with tubular necrosis (3) JOAO (acute kidney injury) SNOMED Code(s): 07711426, 08614796 ICD Code: N17.9 - ACUTE KIDNEY FAILURE, UNSPECIFIED Status: Acute Current Visit: Yes (4) Hypernatremia SNOMED Code(s): 607834646 ICD Code: E87.0 - HYPEROSMOLALITY AND HYPERNATREMIA Status: Acute Current Visit: Yes (5) Alzheimer's dementia without behavioral disturbance SNOMED Code(s): 36006942 ICD Code: G30.9 - ALZHEIMER'S DISEASE, UNSPECIFIED; F02.80 - DEMENTIA IN OTH DISEASES CLASSD ELSWHR W/O BEHAVRL DISTURB Status: Chronic Current Visit: Yes Qualifiers: Alzheimer's disease onset: late-onset Qualified Code(s): G30.1 - Alzheimer' s disease with late onset; F02.80 - Dementia in other diseases classified elsewhere without behavioral disturbance (6) Encounter for palliative care SNOMED Code(s): 401191281 ICD Code: Z51.5 - ENCOUNTER FOR PALLIATIVE CARE Status: Acute Current Visit: Yes (7) Aspiration pneumonia SNOMED Code(s): 463680148 ICD Code: J69.0 - PNEUMONITIS DUE TO INHALATION OF FOOD AND VOMIT Status: Acute Current Visit: Yes Qualifiers: Aspiration pneumonia type: unspecified Laterality: left Lung location: lower lobe of lung Qualified Code(s): J69.0 - Pneumonitis due to inhalation of food and vomit (8) Acute respiratory failure with hypoxia SNOMED Code(s): 49662653, 721913676 ICD Code: J96.01 - ACUTE RESPIRATORY FAILURE WITH HYPOXIA Status: Acute Current Visit: Yes - Patient Summary/Data Hospital Course: Regina presented to the emergency room with weakness, lethargy and increased confusion. Work-up in the emergency room was suggestive of a left lower lobe pneumonia with hypoxic respiratory failure. There was concern for an aspiration type pneumonia with recent decreased level of consciousness. Work- up also suggestive of a urinary tract infection. She was very dehydrated and had acute kidney injury. Her initial sodium level was 154. Cultures were obtained and she was started on broad-spectrum antibiotics. She received IV fluids per the sepsis protocol. She was admitted to the hospital for further management. It was noted that at the time of admission the did not want aggressive interventions performed and did not want the patient to have CPR or intubation with mechanical ventilation. Over the next 48 hours the patient continued to have difficulty with hypernatremia and IV fluids were transitioned to D5W. Infection anna she was not having any fevers. Her respiratory status did improve and she was able to be weaned off her supplemental oxygen. Her urine culture grew out E. coli. Unfortunately her condition did not improve much. She remained obtunded and very lethargic. She was not able to eat or drink anything. This continued to be the case over the next several days. Her sodium level slowly improved and then normalized she has not had any fevers. Antibiotics were transitioned from very broad-spectrum to ceftriaxone to cover respiratory and urinary pathogens. Towards the end of the hospital stay she was able to open her eyes slightly but has not been interactive. She has not been able to take anything by mouth. I had multiple discussions with her Don who was in contact with her children as well. The decision was made to transition to comfort cares and for the patient to be transported home to receive hospice care in her home. She has been here for nearly a week and has been essentially unresponsive the entire time. She is not able to eat or drink. I would expect that her life expectancy is around a 1 week unless there are acute issues that develop between now and then. She has received plenty of hydration here but will not be able to eat or drink anything and should deteriorate fairly quickly. Family is in agreement with the plan and will be providing care at home along with the hospice team. Qualifying diagnosis for hospice will be Alzheimer's disease with late onset and without behavioral disturbance. She is incontinent of bowel and bladder. She requires assistance for all of her daily activities. She is not able to feed herself and is not able to take anything by mouth. She is very lethargic and bedbound at this time. - Patient Instructions Diet: NPO Activity: Bedrest Other/Special Instructions: 1. Regina was in the hospital for management of a urinary tract infection caused by E. coli as well as presumed aspiration pneumonia. These infections were complicated by a very high sodium level, acute kidney injury and significant dehydration. Given her weakened state even before the infections her body was not able to tolerate these infections. We have made a transition to comfort cares. I have placed a referral to hospice to help ease your transition home and to provide palliative care in her final days. - Discharge Plan *PRESCRIPTION DRUG MONITORING PROGRAM REVIEWED*: Not Applicable *COPY OF PRESCRIPTION DRUG MONITORING REPORT IN PATIENT SMITA: Not Applicable Oxygen Therapy Mode: Room Air Patient Handouts: End-of-Life Care Referrals: PCP,None [Primary Care Provider] - - Discharge Summary/Plan Comment DC Time >30 min.: Yes (40 - coordinating hospice ) - Patient Data Vitals - Most Recent: Last Vital Signs Temp 35.8 C 10/11/19 07:25 Pulse 74 10/10/19 07:28 Resp 14 10/11/19 07:25 BP 122/53 L 10/11/19 07:25 Pulse Ox 87 L 10/11/19 07:25 Weight - Most Recent: 37 kg KYLE Results - Last 24 hrs: Microbiology 10/05/19 13:36 Aerobic Blood Culture - Final Blood - Venous - Lab Draw NO GROWTH AFTER 5 DAYS Anaerobic Blood Culture - Final NO GROWTH AFTER 5 DAYS 10/05/19 13:26 Aerobic Blood Culture - Final Blood - Venous NO GROWTH AFTER 5 DAYS Anaerobic Blood Culture - Final NO GROWTH AFTER 5 DAYS Med Orders - Current: Current Medications Acetaminophen (Tylenol) 650 mg PO Q4H PRN PRN Reason: Pain (Mild 1-3)/fever Acetaminophen (Tylenol) 650 mg RECTAL Q4H PRN PRN Reason: Pain/Fever Morphine Sulfate (Morphine 10 Mg/0.5 Ml Oral Syringe) 10 mg BUCCAL Q1H PRN PRN Reason: Pain Last Admin: 10/11/19 04:23 Dose: 10 mg Polyethylene Glycol (Miralax) 17 gm PO DAILY PRN PRN Reason: Constipation Sodium Chloride (Saline Flush) 10 ml FLUSH ASDIRECTED PRN PRN Reason: Keep Vein Open Discontinued Medications Albuterol (Proventil Neb Soln) 2.5 mg NEB Q4H PRN PRN Reason: Shortness Of Breath/wheezing Digoxin (Lanoxin) 250 mcg IVPUSH ONETIME ONE Stop: 10/06/19 14:01 Last Admin: 10/06/19 14:06 Dose: 250 mcg Donepezil HCl (Aricept) 10 mg PO BEDTIME [facility] Last Admin: 10/07/19 22:34 Dose: Not Given Enoxaparin Sodium (Lovenox) 30 mg SUBCUT DAILY [facility] Last Admin: 10/05/19 17:31 Dose: 30 mg Enoxaparin Sodium (Lovenox) 30 mg SUBCUT Q24H [facility] Last Admin: 10/08/19 18:18 Dose: 30 mg Ceftriaxone Sodium 2 gm/ (Sodium Chloride) 50 mls @ 100 mls/hr IV ONETIME ONE Stop: 10/05/19 13:54 Last Admin: 10/05/19 14:07 Dose: 100 mls/hr Sodium Chloride (Normal Saline) 1,000 mls @ 999 mls/hr IV ASDIRECTED [facility] Last Admin: 10/05/19 14:05 Dose: 999 mls/hr Doxycycline Hyclate 100 mg/ (Sodium Chloride) 100 mls @ 100 mls/hr IV Q12H [facility] Last Admin: 10/08/19 04:29 Dose: 100 mls/hr Meropenem 1 gm/ Sodium (Chloride) 100 mls @ 200 mls/hr IV Q12H [facility] Last Admin: 10/05/19 20:47 Dose: Not Given Sodium Chloride (Normal Saline) 1,000 mls @ 125 mls/hr IV ASDIRECTED [facility] Last Admin: 10/05/19 17:25 Dose: 125 mls/hr Meropenem 500 mg/ Sodium (Chloride) 50 mls @ 100 mls/hr IV Q12H [facility] Last Admin: 10/06/19 05:31 Dose: 100 mls/hr Dextrose/Water (Dextrose 5% In Water) 1,000 mls @ 75 mls/hr IV ASDIRECTED [facility] Last Admin: 10/06/19 16:55 Dose: 75 mls/hr Meropenem 1 gm/ Sodium (Chloride) 100 mls @ 200 mls/hr IV Q12H [facility] Last Admin: 10/08/19 05:36 Dose: 200 mls/hr Potassium Chloride 20 meq/Lidocaine HCl 2 ml/ Sodium Chloride 112 mls @ 56 mls/ hr IV Q2H [facility] Stop: 10/06/19 13:59 Last Admin: 10/06/19 11:56 Dose: 56 mls/hr Potassium Chloride/Dextrose/Sod Cl (D5 1/2 Ns W/ 20 Meq/L Kcl) 1,000 mls @ 75 mls/hr IV ASDIRECTED [facility] Last Admin: 10/09/19 21:14 Dose: 75 mls/hr Potassium Chloride 20 meq/Lidocaine HCl 2 ml/ Sodium Chloride 112 mls @ 56 mls/ hr IV Q2H [facility] Stop: 10/07/19 14:29 Last Admin: 10/07/19 12:49 Dose: 56 mls/hr Ceftriaxone Sodium 1 gm/ (Sodium Chloride) 50 mls @ 100 mls/hr IV Q24H [facility] Last Admin: 10/09/19 14:40 Dose: 100 mls/hr Influenza Virus Vaccine (Pharmacy To Dose - Influenza Vaccine) 1 each IM ONETIME ONE Stop: 10/06/19 10:01 Influenza Virus Vaccine (Fluzone High-Dose 2018- Syringe) 180 mcg IM .ONCE ONE Stop: 10/05/19 18:01 Last Admin: 10/05/19 20:47 Dose: Not Given Influenza Virus Vaccine (Fluzone High-Dose 2018- Syringe) 180 mcg IM .ONCE ONE Stop: 10/08/19 10:01 Last Admin: 10/08/19 13:39 Dose: Not Given Lactobacillus Rhamnosus (Culturelle) 1 cap PO BID [facility] Last Admin: 10/08/19 09:33 Dose: Not Given Memantine (Namenda) 5 mg PO BID [facility] Last Admin: 10/08/19 09:33 Dose: Not Given Ondansetron HCl (Zofran) 4 mg IV Q4H PRN PRN Reason: Nausea/Vomiting Sodium Chloride (Saline Flush) 10 ml FLUSH ASDIRECTED PRN PRN Reason: Keep Vein Open Last Admin: 10/05/19 14:07 Dose: 10 ml Sodium Chloride (Normal Saline) 999 ml IV NOW STA Stop: 10/05/19 13:28 Last Admin: 10/05/19 20:47 Dose: Not Given Sotalol HCl (Betapace) 40 mg PO BID [facility] Last Admin: 10/08/19 09:33 Dose: Not Given
== END 2019-10-11 16:00 | disposition hospice, home (50) | DRG 871 ==
LOC: JP.ED 13:19 → JP.MS 16:09
PROVIDERS: ADMIT Hospitalist; ATTEND Internal Medicine
DX: A41.50 Gram-negative sepsis, unspecified (principal); A41.51 Sepsis due to Escherichia coli [E. coli]; N17.0 Acute kidney failure with tubular necrosis; J69.0 Pneumonitis due to inhalation of food and vomit; N39.0 Urinary tract infection, site not specified; J96.01 Acute respiratory failure with hypoxia; N17.9 Acute kidney failure, unspecified; N30.00 Acute cystitis without hematuria; E87.0 Hyperosmolality and hypernatremia; Z51.5 Encounter for palliative care; G30.9 Alzheimer's disease, unspecified; Z66 Do not resuscitate; L89.151 Pressure ulcer of sacral region, stage 1; R65.20 Severe sepsis without septic shock; G30.1 Alzheimer's disease with late onset; F02.80 Dementia in other diseases classified elsewhere, unspecified severity, without behavioral disturbance, psychotic disturbance, mood disturbance, and anxiety; R32 Unspecified urinary incontinence; R15.9 Full incontinence of feces; H54.7 Unspecified visual loss; M19.90 Unspecified osteoarthritis, unspecified site; I48.91 Unspecified atrial fibrillation; Z74.01 Bed confinement status; Z88.0 Allergy status to penicillin; Z99.81 Dependence on supplemental oxygen; Z79.899 Other long term (current) drug therapy
CPT/HCPCS: 36415; 70450; 71250; 74176; 80053; 81001; 82550; 83605; 84443; 85025; 85610; 87040 ×2; 87086; 87088; 87186; 96365; 99291 ×2; J0696; J7030; J7050; 80048; 84295; 85027; 94762; A9270-GY; J1160; J1650; J2001; J2185; J3480; J3490; J7060